=== PATIENT | female | born 1970 | race Caucasian/White ===

== ENCOUNTER 2020-12-27 07:32 | Emergency (ER) | payer OTHER, MEDICAID, SELFPAY ==
--- NOTE | ~2020-12-27 | CT_ITS ---
EXAMINATION: CT ABDOMEN AND PELVIS WITHOUT CONTRAST CLINICAL INFORMATION: Mid to lower back pain radiating to right leg. COMPARISON: CT abdomen and pelvis with contrast 11/05/2018. TECHNIQUE: Multidetector volumetric imaging was performed from the superior aspect of the liver through the pubic symphysis. Sagittal and coronal reformatted images were obtained on the technologist's workstation. No oral or intravenous contrast. This CT examination was performed using dose optimization techniques as appropriate, variously including the following: *Automated exposure control *Adjustment of mA and/or kV according to patient size (this includes techniques or standardized protocols for targeted exams where dose is matched to indication/reason for exam; i.e. extremities or head) *Use of iterative reconstruction technique DLP: 661 mGy-cm FINDINGS: LUNG BASES: The visualized lung bases are unremarkable. LIVER, GALLBLADDER, AND BILIARY TREE: The liver is smooth in contour and normal in attenuation. There is elongated right lobe measuring 21 cm in length similar to prior exam. There is no focal hepatic parenchymal lesion or intrahepatic ductal dilatation. The gallbladder has small fundal phrygian cap. There is no stone or wall thickening, gallbladder dilatation, or pericholecystic inflammatory changes. Common duct is unremarkable. PANCREAS: Unremarkable. SPLEEN: Normal in size. Small splenule again seen left upper quadrant, 1 cm. ADRENAL GLANDS: Unremarkable. KIDNEYS AND URETERS: The kidneys are normal in size, shape, and attenuation. No hydronephrosis, hydroureter, or calculi seen. No perinephric stranding. BLADDER: Unremarkable. GASTROINTESTINAL TRACT: There is no bowel obstruction or focal inflammatory changes in the bowel or mesentery. The appendix is normal. There is no ascites or fluid collection. ABDOMINAL WALL: No significant hernia is appreciated. LYMPH NODES: No lymphadenopathy. Small stable right diaphragmatic node, 0.7 cm, series 2 image 7. VASCULAR: Unremarkable. PELVIC VISCERA: Probable bilateral tubal ligation clips. No adnexal mass or pelvic ascites. OSSEOUS STRUCTURES: No acute bony abnormality. There are degenerative disc changes with posterior bulging and annulus mineralization again seen L4-L5. CT/CT abdomen pelvis wo con IMPRESSION: 1. No acute inflammatory changes in abdomen or pelvis. 2. No hydronephrosis, urinary tract calculi, or perinephric stranding. 3. Degenerative disc changes and disc bulging L4-L5 similar to prior exam 2018.
[2020-12-27 09:06] VITALS: BP 111/78; PULSE 76; RESP 14; TEMP 36.2; O2SAT 97; BMI 34.3
[2020-12-27] MEDS: dexAMETHasone 2 MG TABLET 10 MG PO (10:15)
[2020-12-27] MEDS: Cyclobenzaprine HCl 10 MG TABLET PO (10:16)
[2020-12-27] MEDS: NaPROXEN 500 MG TABLET PO (10:17)
[2020-12-27 10:24] LABS: Glucose Urine UA NEG (NEG); Leukocyte Esterase Urine TRACE (NEG); Nitrite Urine NEG (NEG); PH 5.5 (5.0-8.0); Specific Gravity - Urine >= 1.030 (1.005-1.025); UACC Culture Trigger YES; Urine Blood NEG (NEG); Urine Ketones NEG (NEG); Urine Protein NEG (NEG-TRACE)
[2020-12-27 10:26] LABS: Appearance Urine HAZY; Color Urine YELLOW
--- NOTE | 2020-12-27 10:26 | ED_ITS ---
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 Denies any other injuries complaints or concerns at this time. MD elicited complaint: back pain and back injury Pertinent past history: recent trauma Onset (ago): minute(s) (Prior to arrival) Timing: constant Severity: moderate Similar Symptoms Previously: No Quality: sharp and aching Location: lumbar spine Radiation: right upper leg Exacerbating factors: movement and walking Relieving factors: immobilization Context: while lifting, turning/twisting and bending Associated symptoms: denies other symptoms Treatments prior to arrival: other ([id number] Tylenol with mild to no symptomatic relief) Work related injury: Yes Related Data Previous Rx's Medication Instructions Recorded cyclobenzaprine 10 mg PO Q8H #10 tab 12/27/20 naproxen 500 mg PO BID PRN #10 tab 12/27/20 Allergies Allergy/AdvReac Type Severity Reaction Status Date / Time No Known Allergies Allergy Unverified 06/01/20 15:56 Review of Systems Review of Systems: Constitutional : No trauma, No Weight loss, No Fever, No Chills, ENT/Mouth : No Hearing loss, No Ear Pain, No Nasal Congestion, No Sinus Pain, No Hoarseness, No sore throat, No Rhinorrhea, No Swallowing Difficulty Cardiovascular : No Chest Pain, No SOB Respiratory : No Cough, No Dyspnea Gastrointestinal : No Nausea, No Vomiting, No Diarrhea, No abdominal Pain, No Hematochezia, No Melena Genitourinary : No Dysuria, No Urinary Frequency, No Hematuria, No Urinary or Bowel Incontinence/retention Musculoskeletal : + Back pain, No neck pain, No joint stiffness, No joint swelling Skin : No Skin Lesions, No rash or signs of infection Neuro : + radiation, No weakness, No Numbness, No Paresthesias, No headache, no loss of bowel or bladder incontinence, no saddle anesthesia, Focal weakness, No radiation Denies history of IV drug usage. Yes all other systems are reviewed and are negative FOR[facility]LY [facility] Past Medical History Attestation statement: The following information was validated with the patient. Medical History Cervical cancer Social History Social History Smoking Status: Current every day smoker Smoked in Last 30 Days: Yes Use of substances other than those prescribed or required for medical reasons: No Advance Directives: Yes Advance Directives Information Provided: Yes Advance Directives on File: No Physical Exam Vital Signs: Vital Signs: Last Vital Signs Temp 97.1 F 12/27/20 09:06 Pulse 76 12/27/20 09:06 Resp 14 12/27/20 09:06 BP 111/78 12/27/20 09:06 Pulse Ox 97 12/27/20 09:06 Body Mass Index 34.3 vital signs have been reviewed as normal and appeared to be correct. Blood pressure normal. Heart rate normal. Respiration rate normal. Temperature normal. Oxygen saturation normal. Appearance: Alert. Oriented X3. No acute distress. Head: Normal external exam. Normocephalic. Atraumatic. No Green signs noted. No raccoon eyes noted Eyes: PERRLA. EOMI. Conjunctiva and sclera normal. Eyelids normal. ENT: EAC normal. TM's Normal. Pharynx normal. Uvula midline. Moist mucous membranes. No trismus noted. No drooling noted. No muffled voice noted. Neck: Normal inspection. Neck supple. FROM. No adenopathy. Thyroid Normal. No meningeal signs. No neck mass noted. CVS: Normal heart rate and rhythm. Heart sound normal. No murmurs noted. Pulses normal throughout. Respiratory: No respiratory distress. Painless inspiration. Breath sounds normal. No wheezes/rales/rhonchi noted. Chest nontender. No accessory muscle usage noted or decreased air movement noted. Abdomen: Soft and nontender. Bowel sounds normal in all 4 quadrants. No distention noted. No organomegaly noted. No visible injury noted. Back: No CVA tenderness. Full range of motion noted. No obvious deformities, or edema. Mild para-spinal muscular tenderness from lumbar region to coccyx. Full ROM in back and lower extremities. 5/5 strength hip extension/flexion, abduction, adduction. Mild Lumbar pain with hip flexion against resistance. Straight leg raise test negative on right; Straight leg raise test negative on left; Reflexes normal ankle and knee bilaterally; EHL motor strength normal bilaterally. No rashes/lesion/induration/fluctuance or signs infection noted. Skin: Skin warm and dry. Normal skin color. Normal skin turgor. No rashes/lesions/lacerations noted. Extremities: No lower extremity edema. Extremities exhibit normal range of motion. Extremities nontender. Neuro: Oriented X 3. No motor deficit. No sensory deficit. Reflexes normal. Normal steady gait. Course Course Course Narrative: Pt c likely muscular pain, but could be herniated disc. Neuro exam shows no deficits. Not c/w AAA/epidural abscess/dissection.No high risk Hx (Incont, fever, immunosupp, recent surgery/LP, coag, signif trauma, wt loss, puls mass, hx/o Ca, TB, or IVDU) to warrant MRI today. Not c/w Pyelo/UTI/kidney stone/spinal fx. Not cauda equina syndrome. Due to patient reporting she has never had this pain will obtain a CT scan of abdomen pelvis without contrast. Patient also gave me a form and on the form it says drug screen for employee she reports that her employer gave her this and specifically told her that this 1 form had to be filled out by the doctor/provider that sees her therefore will obtain a UA and a drugs of abuse screen. If CT of abdomen and pelvis is negative will DC c meds and f/u with [facility]. Patient understands agrees this plan. MDM - Back Pain/Injury Medical Records Attestation: I reviewed the patient's medical records. Lab Data Attestation: I reviewed the patient's lab results. Labs: Lab Results 12/27/20 12/27/20 12/27/20 Range/Units 10:09 10:09 10:09 Urine Color YELLOW Urine Appearance HAZY Urine pH 5.5 (5.0-8.0) Ur Specific [place] >= 1.030 H (1.005-1.025) Urine Protein NEG (NEG-TRACE) MG/DL Urine Glucose (UA) NEG (NEG) MG/DL Urine Ketones NEG (NEG) MG/DL Urine Blood NEG (NEG) Urine Nitrite NEG (NEG) Ur Leukocyte Esterase TRACE H (NEG) Urine RBC 0 (0) /HPF Urine WBC 1-4 (0-4) /HPF Ur Squamous Epith Cells 2+ /LPF Urine Bacteria TRACE /LPF Urine Test NEGATIVE (NEGATIVE) Urine Opiates Screen Not Detected (Not Detect) Ur Barbiturates Screen Not Detected (Not Detect) Ur Phencyclidine Scrn Not Detected (Not Detect) Ur Amphetamines Screen Not Detected (Not Detect) U Benzodiazepines Scrn Not Detected (Not Detect) Urine Cocaine Screen Not Detected (Not Detect) U Marijuana (THC) Screen Not Detected (Not Detect) Imaging Data CT scan of abdomen and pelvis without IV contrast: Attestation: I personally reviewed and interpreted this imaging study as follows: Radiologist's impression: FINDINGS: LUNG BASES: The visualized lung bases are unremarkable. LIVER, GALLBLADDER, AND BILIARY TREE: The liver is smooth in contour and normal in attenuation. There is elongated right lobe measuring 21 cm in length similar to prior exam. There is no focal hepatic parenchymal lesion or intrahepatic ductal dilatation. The gallbladder has small fundal phrygian cap. There is no stone or wall thickening, gallbladder dilatation, or pericholecystic inflammatory changes. Common duct is unremarkable. PANCREAS: Unremarkable. SPLEEN: Normal in size. Small splenule again seen left upper quadrant, 1 cm. ADRENAL GLANDS: Unremarkable. KIDNEYS AND URETERS: The kidneys are normal in size, shape, and attenuation. No hydronephrosis, hydroureter, or calculi seen. No perinephric stranding. BLADDER: Unremarkable. GASTROINTESTINAL TRACT: There is no bowel obstruction or focal inflammatory changes in the bowel or mesentery. The appendix is normal. There is no ascites or fluid collection. ABDOMINAL WALL: No significant hernia is appreciated. LYMPH NODES: No lymphadenopathy. Small stable right diaphragmatic node, 0.7 cm, series 2 image 7. VASCULAR: Unremarkable. PELVIC VISCERA: Probable bilateral tubal ligation clips. No adnexal mass or pelvic ascites. OSSEOUS STRUCTURES: No acute bony abnormality. There are degenerative disc changes with posterior bulging and annulus mineralization again seen L4-L5. CT/CT abdomen pelvis wo con IMPRESSION: 1. No acute inflammatory changes in abdomen or pelvis. 2. No hydronephrosis, urinary tract calculi, or perinephric stranding. 3. Degenerative disc changes and disc bulging L4-L5 similar to prior exam 2019. Discharge Plan Discharge Clinical Impression: Strain of lumbar region, Work related injury Instructions: Low Back Strain (ED), Return to Work Instructions (ED), Lower Back Exercises (ED) Prescriptions: New cyclobenzaprine 10 mg tablet 10 mg PO Q8H Qty: 10 RF: 0 naproxen 500 mg tablet 500 mg PO BID PRN (Reason: pain) Qty: 10 RF: 0 Referrals: [facility] [Provider Group] - 12/27/20 (You need to follow-up with [facility] today or tomorrow for work related injury and they will let you know when you can return back to work) Stand Alone Forms: Work/School Release Print Language: Syriac
[2020-12-27 10:27] LABS: UPreg QC Valid YES; Urine Pregnancy NEGATIVE (NEGATIVE)
[2020-12-27 10:34] LABS: Bacteria Urine TRACE /LPF; RBC Urine 0 /HPF (0); Squamous Epithelial Cell Urine 2+ /LPF
[2020-12-27 10:45] LABS: Amphetamine Screen Urine Not Detected (Not Detect); Barbiturates, Urine Not Detected (Not Detect); Benzodiazepines Screen Urine Not Detected (Not Detect); Cannabinoid Screen Urine Not Detected (Not Detect); Cocaine Screen Urine Not Detected (Not Detect); Opiate Screen Urine Not Detected (Not Detect); Phencyclidine Screen Urine Not Detected (Not Detect)
== END 2020-12-27 11:40 | disposition home or self-care (01) ==
PROVIDERS: Physician Assistant Medical; Emergency Provider Emergency Medicine Emergency Medical Services
DX: S39.012A Strain of muscle, fascia and tendon of lower back, initial encounter (principal); X50.0XXA Overexertion from strenuous movement or load, initial encounter; M54.41 Lumbago with sciatica, right side; F17.200 Nicotine dependence, unspecified, uncomplicated; Y93.F2 Activity, caregiving, lifting; Y92.122 Bedroom in nursing home as the place of occurrence of the external cause; Y99.0 Civilian activity done for income or pay
CPT/HCPCS: 74176; 80307; 81001; 81003; 81025; 87086; 99284; J8540

== ENCOUNTER 2021-01-10 12:26 | Outpatient (REF) | payer MEDICAID, SELFPAY ==
[2021-01-10 13:04] LABS: MANUAL DIFF FLAG NO
[2021-01-10 13:10] LABS: Basophils Percent Auto 0.3 % (0-2); Eosinophils Percent Auto 0.5 % (0-4); Hematocrit 39.5 % (37-47); Hemoglobin 13.4 g/dl (12.0-16.0); Imm Gran Abs Auto 0.02 X10*3/uL (0.00-0.03); Imm Gran Pct Auto 0.3 % (0.0-0.4); Lymphocytes Absolute Auto 1.3 X10*3/uL (1.2-4.9); Lymphocytes Percent Auto 16.6 % (20-40); Mean Corpuscular HGB Conc 33.9 g/dl (31.0-35.0); Mean Corpuscular Hemoglobin 33.8 pg (27.0-33.0); Mean Corpuscular Volume 99.7 fL (80-98); Mean Platelet Volume 8.7 fL (9.4-12.3); Monocytes Absolute Auto 0.4 X10*3/uL (0.1-1.2); Neutrophils Absolute Auto 5.8 X10*3/uL (2.0-8.3); Neutrophils Percent Auto 77.3 % (45-73); Platelet Count 201 X10*3/uL (160-400); Red Blood Count 3.96 X10*6/uL (4.20-5.50); Red Cell Distribution Width 12.5 % (11.0-16.0); White Blood Count 7.5 X10*3/uL (4.8-10.8)
[2021-01-10 13:49] LABS: Glucose Urine UA NEG (NEG); Leukocyte Esterase Urine NEG (NEG); Nitrite Urine NEG (NEG); Specific Gravity - Urine >= 1.030 (1.005-1.025); Urine Blood NEG (NEG); Urine Ketones NEG (NEG); Urine Protein NEG (NEG-TRACE)
[2021-01-10 13:51] LABS: Appearance Urine HAZY; Color Urine DARK YELLOW
[2021-01-10 13:55] LABS: Alanine Aminotransferase 33 U/L (0-31); Albumin Level 4.2 g/dL (3.5-5.0); Alkaline Phosphatase 93 U/L (39-117); Amylase 74 U/L (28-100); Anion Gap 14 (12-20); Aspartate Amino Transferase 33 U/L (5-31); Bilirubin Direct 0.2 mg/dL (0.0-0.5); Bilirubin Total 0.6 mg/dL (0.0-1.0); Blood Urea Nitrogen 15 mg/dL (9-16); Calcium 9.1 mg/dL (8.4-10.2); Carbon Dioxide 24 mmol/L (22-29); Chloride 107 mmol/L (96-108); Estimated Glomerular Filt Rate > 60; Glucose Random 175 mg/dL (60-115); Lipase 40 U/L (8-78); Potassium 4.1 mmol/L (3.3-5.1); Sodium 141 mmol/L (135-145); Total Protein 7.3 g/dL (6.5-8.0)
[2021-01-10 14:14] LABS: TSH reflex Free T4 2.41 uIU/mL (0.32-4.0)
== END 2021-01-10 12:27 | disposition home or self-care (01) ==
LOC: HO.LAB 12:26
PROVIDERS: PCP Student in an Organized Health Care Education/Training Program; Visit Provider Pediatrics
DX: R10.13 Epigastric pain (principal); M54.16 Radiculopathy, lumbar region
CPT/HCPCS: 36415; 80048; 80076; 81003; 82150; 83690; 84443; 85025

== ENCOUNTER 2021-01-29 14:33 | Outpatient (REF) | payer MEDICAID, SELFPAY ==
[2021-01-29 15:31] LABS: Estimated Average Glucose 114 mg/dL; Hemoglobin A1c % 5.6 %
[2021-01-29 15:43] LABS: Anion Gap 13 (12-20); Blood Urea Nitrogen 13 mg/dL (9-16); Calcium 8.8 mg/dL (8.4-10.2); Carbon Dioxide 25 mmol/L (22-29); Chloride 105 mmol/L (96-108); Estimated Glomerular Filt Rate > 60; Glucose Random 128 mg/dL (60-115); Potassium 4.1 mmol/L (3.3-5.1); Sodium 139 mmol/L (135-145)
[2021-01-29 16:05] LABS: T4 Thyroxine 4.7 ug/dL (4.5-12.0); Thyroid Stimulating Hormone 3.77 uIU/mL (0.32-4.0)
[2021-01-30 21:42] LABS: Insulin Level Total 28.9 uIU/mL
== END 2021-01-29 14:34 | disposition home or self-care (01) ==
LOC: HO.LAB 14:33
PROVIDERS: Absent Provider Student in an Organized Health Care Education/Training Program; PCP Student in an Organized Health Care Education/Training Program; Visit Provider Pediatrics
DX: E03.9 Hypothyroidism, unspecified (principal); R73.9 Hyperglycemia, unspecified
CPT/HCPCS: 36415; 80048; 83036; 83525; 84436; 84443; 84481

== ENCOUNTER → 2021-12-26 07:24 | Outpatient (BNVA) | payer MEDICAID, SELFPAY | PROVIDERS: PCP Student in an Organized Health Care Education/Training Program; Visit Provider Physician Assistant | DX: R14.0 Abdominal distension (gaseous) (principal); R31.9 Hematuria, unspecified; K59.00 Constipation, unspecified; R19.7 Diarrhea, unspecified; K21.9 Gastro-esophageal reflux disease without esophagitis; Z85.41 Personal history of malignant neoplasm of cervix uteri; Z92.21 Personal history of antineoplastic chemotherapy; Z92.3 Personal history of irradiation | CPT/HCPCS: 99202 ==

== ENCOUNTER 2022-03-25 15:51 | Outpatient (REF) | payer MEDICAID, SELFPAY ==
--- NOTE | ~2022-03-25 | MM_ITS ---
EXAMINATION: MM SCREENING DIGITAL BREAST TOMOSYNTHESIS, BILATERAL CLINICAL INFORMATION: Screening. Asymptomatic. Benign right core biopsy, 2012. Prior history bilateral reduction mammoplasty. The lifetime risk of breast cancer based on the Tyrer-Cuzick Model is 8%. COMPARISON: Outside mammography: 05/02/2016, 12/27/2013 ([facility]) TECHNIQUE: Digital breast tomosynthesis is performed in both the craniocaudal and mediolateral oblique views along with computer-aided detection (CAD). Synthesized 2D images are generated from the tomosynthesis. FINDINGS: The breasts are almost entirely fatty (ACR BI-RADS breast composition Category a). There is minor scarring and scattered benign round/rim calcifications similar to prior outside exam consistent with the reduction mammoplasty. There is no interval mass or architectural abnormality or abnormal calcifications. There are benign grouped dermal calcifications mid 6:00 right breast. Biopsy clip marker again noted anterior 6:00 right breast. The axilla are unremarkable. There are no significant changes. MM/MM tomosynthesis screening BI IMPRESSION: No mammographic evidence of malignancy. ASSESSMENT: BI-RADS 2: Benign RECOMMENDATION: Routine annual mammography screening. This patient's information was entered into a reminder system with a target due date for their next mammogram.
== END 2022-03-25 15:52 | disposition home or self-care (01) ==
LOC: HO.MAMMO 15:51
PROVIDERS: PCP Student in an Organized Health Care Education/Training Program; Visit Provider Advanced Practice Midwife
DX: Z12.31 Encounter for screening mammogram for malignant neoplasm of breast (principal)
CPT/HCPCS: 77063; 77067

== ENCOUNTER 2022-04-02 10:42 | Day surgery (SDC) | payer MEDICAID, SELFPAY ==
[2022-03-27 11:52] VITALS: BMI 34.2
--- NOTE | 2022-04-01 09:53 | HO.ANESPROP2 ---
Documented by User: Fabiana Mendes NP 04/01/22 09:54 HPI - Anesthesia Eval Consult details Narrative: 51yo F for Upper Endoscopy and Colonoscopy FOR[facility]LY [facility] Active Problems Active Problems: All Active Problems (Updated 01/01/22 @ 08:11 by Samina Meza PA-C) Acid reflux (Acute) Blood in urine (Acute) Generalized bloating (Acute) Constipation (Acute) Diarrhea (Acute) Anxiety reaction (Acute) Depression (Acute) Cervical cancer (Acute) Past Medical History Medical History Cervical cancer Depression Hypothyroid Smoker Family History Family History Father No problems noted. Mother No problems noted. Brother Pancreatic cancer Surgical History Surgical History Hx of bilateral breast reduction surgery Hx of removal of cyst Hx of skin graft Social History Social History Household Members: Spouse and Children Alcohol intake: current Alcohol intake frequency: holidays/special occasions only Patient Tobacco Use Status: Current everyday Tobacco user Cigarette Packs Per Day: 5 Smoked in Last 30 Days: Yes Patient Interested in Nicotine Replacement: No Substance Use Type: Methamphetamine Are you DNR?: No Advance Directives: No Advance Directives Information Provided: Yes Nutrition Risks: No Nutritional Risk FDLMP: 2013 Meds Allergies Allergy/AdvReac Type Severity Reaction Status Date / Time No Known Allergies Allergy Verified 12/26/21 07:37 Exam Exam Date and Time: April 01, 2022 0953 Height,Weight and Vital Signs: Height 5 ft 3 in Weight 87.543 kg Assessment and Plan Assessment Anesthesia Assessment: Chart Reviewed Documented by User: Wander Hardin MD 04/02/22 12:53 [facility] Past Medical History Medical History Cervical cancer Depression Hypothyroid Smoker Patient : No Family History Family History Father No problems noted. Mother No problems noted. Brother Pancreatic cancer Family history of problems with anesthesia: No Surgical History Surgical History Hx of bilateral breast reduction surgery Hx of removal of cyst Hx of skin graft History of Problems with Anesthesia: No Social History Social History Household Members: Spouse and Children Alcohol intake: current Alcohol intake frequency: holidays/special occasions only Patient Tobacco Use Status: Current everyday Tobacco user Cigarette Packs Per Day: 5 Smoked in Last 30 Days: Yes Patient Interested in Nicotine Replacement: No Substance Use Type: Methamphetamine Are you DNR?: No Advance Directives: No Advance Directives Information Provided: Yes Nutrition Risks: No Nutritional Risk FDLMP: 2013 Meds Allergies Allergy/AdvReac Type Severity Reaction Status Date / Time No Known Allergies Allergy Verified 12/26/21 07:37 Exam Airway Mallampati Class: IV TM Dist: >3cm Neck ROM: Full Loose/Missing/Broken Teeth: No Heart: rrr Lungs: clear Assessment and Plan Final Anesthetic Review Family History of Problems with Anesthesia: No History of Problems with Anesthesia: No NPO: Yes ASA Class: II Final Preanesthetic Review: No Changes in Pt Med Stat, Meds/Allgs Chart Reviewed, Consent Obtained/Reviewed and Anes Risks/Benef Reviewed Patient Risk: Intermediate Procedure Risk: Low Anesthetic Plan Anesthetic Plan: MAC: Disposition: Standard PACU
--- NOTE | 2022-04-02 11:44 | PC.NURSE ---
pt states has not had a menstrual cycle since 2012 since cervical cancer diagnosis, chemo and radiation. dr. Hardin stated no need for hcg test
[2022-04-02 11:45] VITALS: BP 115/70; PULSE 78; RESP 18; TEMP 36.2; O2SAT 96
[2022-04-02] MEDS: Lactated Ringers 1,000 ML 100 ML IVCONT (11:48)
--- NOTE | 2022-04-02 12:40 | MHC.SHP ---
Pre-Procedural Eval Section A Date of Service: 04/02/22 Section B Chief Complaint: constipation,diarrhea,reflux disease Details of Present Illness: brother with pancreatic cancer aged 48 Relevant Family History (Specify if Yes): Yes Relevant Social History: Tobacco Use Present Medications: see Short Stay Collaborative assessment Medical History: Significant History (Cervical cancer Depression Hypothyroid Smoker) History of Previous Operations: Relevant previous surgery/procedure and date(s) (Hx of bilateral breast reduction surgery Hx of removal of cyst Hx of skin graft) Allergies: Allergies Allergy/AdvReac Type Severity Reaction Status Date / Time No Known Allergies Allergy Verified 12/26/21 07:37 Review of Systems Sugical H&P ROS: Negative: Constitution, Cardiovascular, Respiratory, Neurological, Psychiatric, Hem-Onc, Allergic/Immunologic, Gastrointestinal, Genitourinary, Musculoskeletal, Integumentary, Endocrine and Eyes/Ears/Nose/Throat Exam Surgical H&P Exam: Normal: HEENT, Normal: Heart, Normal: Lungs, Normal: Extremities, Normal: Abdomen, Normal: Skin and Normal: Neurological Plan Diagnosis/Plan: Unchanged I have reviewed the history and physical and performed a pertinent physical examination on my patient. No changes have occurred unless specified.
--- NOTE | 2022-04-02 14:54 | P.OP_ITS ---
Operative Note Operative Note Date of Service: 04/02/22 Narrative: Operative Information Procedure Description: EGD, Colonoscopy Indication: abnormal bowel habit, gas symptoms, GERD Anesthesia: MAC FLEXIBLE TRANSORAL UPPER GASTROINTESTINAL ENDOSCOPY AND COLONOSCOPY PROCEDURE NOTE UPPER ENDOSCOPY Consent: Indications for the procedure and potential complications of bleeding, perforation, reaction to medications and missed diagnosis were discussed with the patient and informed consent was obtained. Instrument: Olympus GIF H 190 J mid size upper endoscope Monitoring: Vital signs and clinical assessment, continuous EKG monitoring, Pulse oximetry, Carbon Dioxide monitoring and blood pressure monitoring were done throughout the procedure. Procedure: The patient was placed in the left lateral decubitis position and pre-procedure medications were administered and a bite block was placed. The endoscope was inserted into the mouth and advanced under direct vision to the third part of duodenum. A careful inspection was made as the upper endoscope was withdrawn including a retroflexed examination of the proximal stomach; Findings and interventions are described below. Findings: Larynx:normal Esophagus: GE junction at 38 cm, diaphragm hiatus at 38 cm, possible short segment barretts, bx taken, v lax LES. small esophageal inlet patch noted. Stomach: Patchy erythema, Biopsies were obtained. Grade 3 flap valve on retroflexed examination of the cardia. Duodenum: Normal bulb and descending duodenum, bx taken Intervention: Biopsies as noted above COLONOSCOPY Instrument: Olympus variable stiffness pediatric scope 190L Colonoscopy Monitoring: Vital signs and clinical assessment, continuous EKG monitoring, Pulse oximetry, Carbon Dioxide monitoring and blood pressure monitoring were done throughout the procedure. Colon withdrawal time was 12 minutes. Procedure: The patient was placed in the left lateral decubitis position and pre-procedure medications were administered. After a digital rectal examination of the ano-rectum, the video colonoscope was inserted into the rectum and advanced through the colon to the cecum/TI. The colonoscope was slowly withdrawn in a retrograde panoramic fashion and the colon mucosa was carefully examined including a retroflexed view of the rectum. Findings and interventions are described below. Procedure Difficulty: easy Findings: Terminal Ileum-normal, bx taken Cecum: erythema and nodularity, bx taken Ascending Colon: normal, bx taken. x2 sessile polyps noted measuring 11-13 mm and removed with cold snare Transverse Colon - x 1 sessile polyp 8-10 mm removed with cold snare Descending Colon:normal Sigmoid Colon: diverticulosis noted, rather featureless mucosa with granularity, and erythema, edema, bx taken Rectum: Retroflexion with small internal hemorrhoids, grade I, mucosa seemed less erythematous Anorectum - normal Colon preparation: Bussey Bowel Preparation Scale Right colon; 2 Transverse colon: 2 Left colon; 2 (0 = Unprepared colon segment with mucosa not seen due to solid stool that cannot be cleared. 1 = Portion of mucosa of the colon segment seen, but other areas of the colon se gment not well seen due to staining, residual stool and/or opaque liquid. 2 = Minor amount of residual staining, small fragments of stool and/or opaque liquid, but mucosa of colon segment seen well. 3 = Entire mucosa of colon segment seen well with no residual staining, small fragments of stool or opaque liquid) Impression and Post Procedure Diagnosis: Endoscopy Findings: possible barretts gastritis esophageal inlet patch Colonoscopy Findings: polyps internal hemorrhoids diverticular disease patchy colitis, ?Crohns Plan: Await Pathology results Repeat Colonoscopy in 3-5 years due to polyps or earlier if clinically indicated High fiber diet leaflet avoid straining at stool, epsom salts and sitz bath, anusol supps or cream may consider CTe or MRe, will await bx Above findings were reviewed with the patient and relevant handouts were provided if indicated.
[2022-04-02 15:24] VITALS: BP 125/73; PULSE 121; RESP 20; TEMP 36.2; O2SAT 98
[2022-04-02 15:39] VITALS: BP 115/80; PULSE 99; RESP 18; O2SAT 96
== END 2022-04-02 16:07 | disposition home or self-care (01) ==
PROVIDERS: PCP Student in an Organized Health Care Education/Training Program; Visit Provider Internal Medicine Gastroenterology
PROC: (CPT 45385; principal; 2022-04-02 12:30)
DX: R19.4 Change in bowel habit (principal); D12.2 Benign neoplasm of ascending colon; D12.4 Benign neoplasm of descending colon; K63.5 Polyp of colon; K57.30 Diverticulosis of large intestine without perforation or abscess without bleeding; K64.0 First degree hemorrhoids; K52.9 Noninfective gastroenteritis and colitis, unspecified; K21.9 Gastro-esophageal reflux disease without esophagitis; Z80.0 Family history of malignant neoplasm of digestive organs; K29.70 Gastritis, unspecified, without bleeding; Q39.8 Other congenital malformations of esophagus; K44.9 Diaphragmatic hernia without obstruction or gangrene; Z79.899 Other long term (current) drug therapy; R31.9 Hematuria, unspecified; Z85.41 Personal history of malignant neoplasm of cervix uteri; Z92.21 Personal history of antineoplastic chemotherapy; Z92.3 Personal history of irradiation; F17.210 Nicotine dependence, cigarettes, uncomplicated
CPT/HCPCS: 45385; 45380; 43239; 88305; 88342; J2250; J3010

== ENCOUNTER 2023-10-07 13:51 | Emergency (ER) | payer MEDICAID, SELFPAY ==
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
[2023-10-07 14:04] VITALS: BP 125/78; PULSE 94; RESP 18; TEMP 36.6; O2SAT 98; BMI 29.0
--- NOTE | 2023-10-07 14:07 | ECG_ITS ---
Test Reason : RUE HEAVINESS Blood Pressure : / mmHG Vent. Rate : 083 BPM Atrial Rate : 083 BPM P-R Int : 128 ms QRS Dur : 076 ms QT Int : 362 ms P-R-T Axes : 062 030 025 degrees QTc Int : 425 ms Normal sinus rhythm Possible Left atrial enlargement Borderline ECG When compared with ECG of 09-NOV-2015 15:32, No significant change was found Referred By: Rosina Hurt Electronically Signed By:Rober Benjamin
== END 2023-10-07 16:50 | disposition home or self-care (01) ==
PROVIDERS: Emergency Provider Internal Medicine; PCP Student in an Organized Health Care Education/Training Program
DX: S16.1XXA Strain of muscle, fascia and tendon at neck level, initial encounter (principal); S46.911A Strain of unspecified muscle, fascia and tendon at shoulder and upper arm level, right arm, initial encounter; V47.6XXA Car passenger injured in collision with fixed or stationary object in traffic accident, initial encounter; R51.9 Headache, unspecified; Y93.89 Activity, other specified; Y92.410 Unspecified street and highway as the place of occurrence of the external cause; Y99.9 Unspecified external cause status
CPT/HCPCS: 70450; 72125; 73080; 93005; 99283; 99284

== ENCOUNTER → 2023-10-07 14:07 | Outpatient (BNV) | payer MEDICAID, SELFPAY | PROVIDERS: Emergency Provider Internal Medicine; PCP Student in an Organized Health Care Education/Training Program; Visit Provider Internal Medicine Cardiovascular Disease | DX: R94.31 Abnormal electrocardiogram [ECG] [EKG] (principal) | CPT/HCPCS: 93010 ==

== ENCOUNTER 2024-09-15 08:14 | Emergency (ER) | payer MEDICAID, SELFPAY ==
--- NOTE | ~2024-09-15 | CT_ITS ---
CLINICAL HISTORY: LLQ pain radiates to groin CT abdomen and pelvis without contrast Comparison: CT/REG - CT ABDOMEN PELVIS WO CON - 12/27/20 09:34 EDT Findings: The lung bases are clear. The liver, spleen, adrenal glands and pancreas are unremarkable. The gallbladder is distended, likely within normal limits. Kidneys demonstrate neither obstruction or calculus. The appendix extends to near midline, axial images 55 through 62 and is borderline prominent at 8 mm. Reference coronal image 56. No bowel obstruction, free air, abscess or adenopathy. Uterus and adnexa are unremarkable. Mild sclerotic changes along the sacroiliac joints bilaterally, [id number]-left. Degenerative changes seen within the spine. Impression: Mildly prominent appendix as detailed above. This is increased in diameter versus the most recent comparison study. Acute appendicitis not excluded although there is no significant stranding about the appendix. Otherwise, chronic appearing changes as detailed. This document has been electronically signed by: Giuliano Manriquez MD on 09/15/2024 10:26:16
--- NOTE | 2024-09-15 08:20 | ED.GENADULT ---
HPI - General Adult General Chief complaint: Abdominal Pain Stated complaint: FEVER SINCE FRIDAY Time Seen by Provider: 09/15/24 08:18 Source: patient Mode of arrival: ambulatory Limitations: no limitations History of Present Illness ED Provider: Sejal Sánchez PA-C HPI narrative: Patient is a 54 year old assigned female at with a history of cervical cancer for which she completed internal and external radiation / treatment in 2013, anxiety, and GERD presenting to the emergency department today with left lower abdominal pain, fever, and nausea. Patient states that over the last 2 days she has had left lower abdominal pain that radiates into her groin and into her leg. Patient states that she has had fevers and nausea at home as well. Patient states that she has not been sexually active because of her chronic cervical pain. Patient denies any dizziness, lightheadedness, vomiting, chills, blurry vision, double vision, loss of vision, chest pain, difficulty breathing, shortness of breath, back pain, night sweats, pain with urination, increased urinary frequency, increased urinary urgency, blood in her urine or stool, syncope or a near syncopal episode, recent trauma or falls, bowel incontinence, bladder incontinence, or any other complaints at this time. Onset (ago): day(s) (2) Location: abdomen Relieving factors: none Exacerbating factors: none Associated symptoms: fever/chills and nausea/vomiting Treatments prior to arrival: other (tylenol no relief) Related Data Previous Rx's ?Medication ?Instructions ?Recorded cyclobenzaprine 10 mg tablet 10 mg PO Q8H Muscle spasm #10 tabs 12/27/20 naproxen 500 mg tablet 500 mg PO BID PRN pain #10 tabs 12/27/20 bisacodyl 5 mg tablet,delayed 10 mg (2 x 5 mg) PO ONCE 12/26/21 release (Dulcolax (bisacodyl)) colonoscopy prep 1 day #2 tabs methylcellulose (laxative) 500 mg 500 mg PO BID #60 tabs 12/26/21 tablet (Citrucel) omeprazole 20 mg capsule,delayed 20 mg PO DAILY #30 caps 12/26/21 release simethicone 125 mg chewable tablet 125 mg PO TID-QID PRN abdominal 12/26/21 (Gas Relief (simethicone)) distention #90 tabs polyethylene glycol 3350 17 238 g PO ONCE 1 day #238 grams 04/01/22 gram/dose oral powder (Miralax) cyclobenzaprine 5 mg tablet 5 mg PO TID PRN muscle spasm #10 10/07/23 tabs lidocaine 5 % topical patch 1 patch topical DAILY #15 ea 10/07/23 cyclobenzaprine 5 mg tablet 5 mg PO TID PRN low back pain 7 09/15/24 days #21 tabs ondansetron 4 mg disintegrating 4 mg PO Q8H 3 days #9 tabs 09/15/24 tablet Allergies Allergy/AdvReac Type Severity Reaction Status Date / Time No Known Allergies Allergy Verified 09/15/24 08:23 Review of Systems Constitutional: Constitutional: Reports no additional constitutional complaints, Denies chills, Reports fever(s) and Denies night sweats Eyes: Eyes: Reports no additional eye complaints, Denies blurry vision, Denies change in vision, Denies diplopia, Denies eye discharge, Denies loss of vision and Denies eye pain ENT: Denies dizziness Cardiovascular: Cardiovascular: Reports no additional cardiovascular complaints, Denies chest pain, Denies lightheadedness, Denies Loss of Consciousness and Denies dyspnea Respiratory: Respiratory: Reports no additional respiratory complaints and Denies dyspnea Gastrointestinal: Gastrointestinal: Reports no additional gastrointestinal complaints, Reports abdominal pain, Denies melena, Denies hematochezia, Denies change in bowel habits, Denies change in stool character, Reports nausea and Denies vomiting Genitourinary: Genitourinary: Denies hematuria, Denies urinary frequency, Denies dysuria, Denies urinary incontinence, Denies urinary hesitancy and Denies urinary urgency Musculoskeletal: Musculoskeletal: Reports no additional musculoskeletal complaints, Denies numbness and Denies tingling Neurologic: Denies dizziness, Denies loss of vision, Denies numbness and Denies tingling Psychiatric: Psychiatric: Reports no additional psychiatric complaints Endocrine: Endocrine: Reports no additional endocrine complaints Hematologic/Lymphatic: Hematologic/Lymphatic: Reports no additional hematologic/lymphatic complaints Allergic/Immunologic: Allergic/Immunologic: Reports no additional allergic/immunologic complaints PMFSH Past Medical History Attestation statement: The following information was validated with the patient. Source: old records reviewed and nursing notes reviewed Medical History Smoker Hypothyroid Depression Cervical cancer Surgical History History of esophagogastroduodenoscopy (EGD) Hx of colonoscopy Hx of skin graft Hx of removal of cyst Hx of bilateral breast reduction surgery Family History Family History Father No problems noted. Mother No problems noted. Brother Pancreatic cancer Social History Social History Household Members: Spouse and Children Alcohol intake: current Alcohol intake frequency: holidays/special occasions only Patient Tobacco Use Status: Current everyday Tobacco user Cigarette Packs Per Day: 5 Substance Use Type: Methamphetamine Physical Exam ED Vital Signs: Vital Signs - 24 hr 09/15/24 08:21 09/15/24 09:59 09/15/24 13:10 Temperature 100.2 F 99.2 F 99.1 F Pulse Rate 103 H 106 H 102 H Respiratory Rate 19 18 20 Blood Pressure 99/70 109/64 94/61 Pulse Oximetry 96 96 95 Oxygen Delivery Method Room Air Room Air Room Air 09/15/24 13:30 Temperature 99.1 F Pulse Rate 102 H Respiratory Rate 20 Blood Pressure 95/59 L Pulse Oximetry 95 Oxygen Delivery Method Room Air BMI result Body Mass Index 30.8 Const General: cooperative, no acute distress, alert and awake Nutritional Appearance: well nourished Orientation/consciousness: patient oriented x3 Limitations: no limitations HENMT Head: Yes normal to inspection and Yes atraumatic Ears: hearing grossly normal bilaterally and external ears normal General nose exam: Normal external nose present, no nasal discharge noted and no epistaxis Face and sinus: Yes normal facial exam, No abrasion and No laceration Mouth: Normal oral and palatal mucosa present, no drooling and no muffled voice Eyes General: appearance normal, both eyes and all related structures Periorbital: periorbital findings normal Eyelids: Yes eyelids normal Conjunctivae: conjunctivae normal Pupils: Equal, round and reactive pupils present EOM: EOMs intact bilaterally Neck Neck: Yes normal visual inspection, Yes full ROM and Yes no lymphadenopathy Chest Chest palpation & inspection: normal inspection of the chest Resp Effort & Inspection: normal respiratory effort and able to speak in complete sentences GI Inspection: Yes normal to inspection Palpation (GI): Soft to palpation, not firm, Tenderness to palpation present (GI) in the LLQ, no guarding and not rigid Neuro General: patient oriented x3 and moves all extremities Cranial nerves: Yes Equal, round and reactive pupils present Cognition (Neuro): normal cognition Extrem General: Yes normal to inspection, Yes full ROM and Yes capillary refill normal Psych Appearance: grossly normal Mental Status: mental status grossly normal Affect: normal affect Attitude: cooperative Thought process: Normal thought process present Thought content: Normal thought content present Insight: Good insight present (Psych) Medications Administered Discontinued Medications Generic Name Dose Route Start Last Admin Trade Name Roque PRN Reason Stop Dose Admin Acetaminophen 1,000 mg in 100 mls @ 400 mls/hr 09/15/24 08:44 09/15/24 09:12 Ofirmev IV 09/15/24 08:58 Infused ONCE ONE Infusion Sodium Chloride 1,000 mls @ 999 mls/hr 09/15/24 11:15 09/15/24 11:14 Ns IV 09/15/24 12:15 999 mls/hr .Q1H1M LARRY Administration Morphine Sulfate 4 mg 09/15/24 08:25 09/15/24 08:42 Morphine Sulfate 4 Mg/Ml Cartridge IVPUSH 09/15/24 08:26 4 mg ONCE ONE Administration Protocol Ondansetron HCl 4 mg 09/15/24 08:25 09/15/24 08:42 Ondansetron Hcl 4 Mg/2 Ml Vial IVPUSH 09/15/24 08:26 4 mg ONCE ONE Administration Medical Decision Making Medical Decision Making [facility] Narrative: Patient is a 54 year old assigned female at with a history of cervical cancer for which she completed internal and external radiation / treatment in 2013, anxiety, and GERD presenting to the emergency department today with left lower abdominal pain, fever, and nausea. Patient's physical exam showed tenderness to palpation of the left lower quadrant. Patient's blood work showed a mildly elevated WBC count of 13.6 as well as a lipase of 161. Patient's urine showed no acute process. Patient's CT of the abdomen and pelvis showed an appendix with a slightly increased diameter but otherwise unremarkable. Given the patient's exam, blood work, and imaging results - I consulted with the general surgeon it operations manager. He examined the patient after reviewing the imaging and stated he did not believe this to be consistent with an appendicitis and did not recommend any surgical intervention or admission for the patient. I explained my physical exam findings as well as all test results to the patient. I answered all questions asked by the patient. Patient received pain medication which, upon re-evaluation, she stated it helped her symptoms significantly. Patient was able to better characterize her pain after receiving analgesia. She stated that the pain is mostly in her left low back and is worse with movement. Patient confirmed she had no epigastric pain. Patient's clinical presentation is most consistent with a viral illness and musculoskeletal pain. I stressed the importance of the patient taking her medication as directed (either prescribed or as the over the counter packaging recommends). I stressed the importance of the patient following up with her primary care provider. I stressed the importance of the patient returning to the emergency department immediately if her symptoms were to worsen or if she were to develop any dizziness, shortness of breath, difficulty breathing, chest pain, blurry vision, loss of vision, nausea, vomiting, abdominal pain, fever, chills, back pain, or any other complaints. Patient verbalized agreement and understanding with this treatment plan and discharge. Differential Diagnosis Differential Diagnoses: The differential diagnosis associated with the presentation includes Abdominal pain Left low back pain Viral illness Appendicitis UTI Admission/Observation Consideration of admission/observation: Escalation of care including admission/observation considered Patient would have been admitted to the hospital had her work up had any findings where hospital admission was appropriate and her clinical presentation warranted hospital admission. Consult Healthcare Provider Management of the patient was discussed with: Geospatial Technologist (spoke with the surgery team as noted in the MDM Rationale portion of this note.) Lab Data [facility] Lab Attestation statement: I reviewed the patient's lab results. My interpretation of these results are in the MDM Rationale portion of this note. 09/15/24 08:42 09/15/24 08:42 Labs: Lab Results 09/15/24 09/15/24 09/15/24 Range/Units 08:42 11:28 12:33 WBC 13.6 H (4.8-10.8) X10*3/uL RBC 3.79 L (4.20-5.50) X10*6/uL Hgb 12.3 (12.0-16.0) g/dl Hct 35.2 L (37.0-47.0) % MCV 92.9 (80.0-98.0) fL MCH 32.5 (27.0-33.0) pg MCHC 34.9 (31.0-35.0) g/dl RDW 12.6 (11.0-16.0) % Plt Count 194 (160-400) X10*3/uL MPV 8.2 L (9.4-12.3) fL Immature Gran % (Auto) 0.4 (0.0-0.4) % Neut % (Auto) 75.8 H (45-73) % Lymph % (Auto) 14.2 L (20-40) % [place] % (Auto) 9.2 (2-11) % Eos % (Auto) 0.2 (0-4) % Baso % (Auto) 0.2 (0-2) % Lymph # (Auto) 1.9 (1.2-4.9) X10*3/uL [place] # (Auto) 1.3 H (0.1-1.2) X10*3/uL Eos # (Auto) 0.0 (0.0-0.4) X10*3/uL Baso # (Auto) 0.0 (0.0-0.2) X10*3/uL Abs Immat Gran (auto) 0.06 H (0.00-0.03) X10*3/uL Absolute Neuts (auto) 10.3 H (2.0-8.3) x10*3/uL Absolute Nucleated RBC 0.000 (0.0-0.012) X10*3/uL Nucleated RBC % (auto) 0.0 (0.0-0.2) /100WBC Sodium 137 (135-145) mmol/L Potassium 3.6 (3.3-5.1) mmol/L Chloride 104 (96-108) mmol/L Carbon Dioxide 24 (22-29) mmol/L Anion Gap 13 (12-20) BUN 9 (9-16) mg/dL Creatinine 0.62 (0.5-1.4) mg/dL Estim Creat Clear Calc 105.6 Estimated GFR > 60 Random Glucose 109 (60-115) mg/dL Calcium 9.5 D (8.4-10.2) mg/dL Magnesium 1.8 (1.6-2.6) mg/dL Total Bilirubin 1.3 H (0.0-1.0) mg/dL AST 22 (5-31) U/L ALT 14 (0-31) U/L Alkaline Phosphatase 67 (39-117) U/L Total Protein 8.0 (6.5-8.0) g/dL Albumin 4.0 (3.5-5.0) g/dL Lipase 161 H (8-78) U/L Urine Color Dark Yellow Urine Appearance Clear Urine pH 6.0 (5.0-9.0) Ur Specific [place] 1.020 (1.005-1.025) Urine Protein Trace (Neg-Trace) mg/dL Urine Glucose (UA) Negative (Negative) mg/dL Urine Ketones 15 (Negative) mg/dL Urine Blood Moderate (2+) H (Negative) Urine Nitrite Negative (Negative) Ur Leukocyte Esterase Small (1+) H (Negative) Urine RBC 11-20 H (0-2) /HPF Urine WBC 0-5 (0-5) /HPF Ur Squamous Epith Cells 6-10 (0-2) /HPF Urine Bacteria None Seen (None Seen) Hyaline Casts 0-2 (0-2) /LPF Chlam trachomat DNA PCR NOT DETECTED (Not Detect.) Influenza Type A (PCR) NEGATIVE (Negative) Influenza Type B (PCR) NEGATIVE (Negative) N.gonorrhoeae DNA (PCR) NOT DETECTED (Not Detect.) RSV RNA Qual (PCR) NEGATIVE (Negative) SARS-CoV-2 RNA (RT-PCR) NEGATIVE (Negative) T. vaginalis (PCR) NOT DETECTED (Not Detect) Bact vaginosis (PCR) NEGATIVE (Negative) C. krusei/glabrata (PCR) NOT DETECTED (Not Detect) Ethel group (PCR) NOT DETECTED (Not Detect) Independent Interpretation I performed an independent interpretation of an: CT Scan Interpretation: My interpretation is in agreement with the radiologist's impression of this imaging study. Report Number: [id number]: Total DLP = 484.00 mGy-cm CLINICAL HISTORY: LLQ pain radiates to groin CT abdomen and pelvis without contrast Comparison: CT/REG - CT ABDOMEN PELVIS WO CON - 12/27/20 09:34 EDT Findings: The lung bases are clear. The liver, spleen, adrenal glands and pancreas are unremarkable. The gallbladder is distended, likely within normal limits. Kidneys demonstrate neither obstruction or calculus. The appendix extends to near midline, axial images 55 through 62 and is borderline prominent at 8 mm. Reference coronal image 56. No bowel obstruction, free air, abscess or adenopathy. Uterus and adnexa are unremarkable. Mild sclerotic changes along the sacroiliac joints bilaterally, [id number]. Degenerative changes seen within the spine. Impression: Mildly prominent appendix as detailed above. This is increased in diameter versus the most recent comparison study. Acute appendicitis not excluded although there is no significant stranding about the appendix. Otherwise, chronic appearing changes as detailed. This document has been electronically signed by: Giuliano Manriquez MD on 09/15/2024 10:26:16 Dictated By: Giuliano Manriquez MD Signed By: Electronically signed by Giuliano Manriquez MD 09/15/24 1026 Radiology Impression Discussion of test interpretation with radiology: I have reviewed the radiologist's reading. Prescription Management I considered prescription management with: Pain Medication (patient prescribed pain medication) Critical Care Time Critical Care Time Critical Care Time: Yes Total Critical Care Time: 46 Attestation: I spent 46 minutes of Critical Care Time with this patient. This does not include time spent on separately reported billable procedures. Discharge Plan Discharge Clinical Impression: Left lower quadrant abdominal pain, Acute left-sided low back pain, Viral illness Patient Disposition: Home, Self-Care Instructions: Acute Low Back Pain (ED), Viral Syndrome (ED), Abdominal Pain (ED) Additional Instructions: Your work up was unremarkable. Follow up with your primary care provider. Return to the emergency department immediately if your symptoms worsen or if you develop any dizziness, shortness of breath, difficulty breathing, chest pain, blurry vision, loss of vision, nausea, vomiting, abdominal pain, fever, chills, back pain, or any other complaints. Prescriptions: New cyclobenzaprine 5 mg tablet 5 mg PO TID PRN (Reason: low back pain) 7 Days Qty: 21 0RF ondansetron 4 mg tablet,disintegrating 4 mg PO Q8H 3 Days Qty: 9 0RF No Action polyethylene glycol 3350 [Miralax] 17 gram/dose powder 238 g PO ONCE 1 Days Qty: 238 0RF Rx Instructions: Take as directed by mouth the day before your procedure. cyclobenzaprine 10 mg tablet 10 mg PO Q8H Qty: 10 0RF naproxen 500 mg tablet 500 mg PO BID PRN (Reason: pain) Qty: 10 0RF cyclobenzaprine 5 mg tablet 5 mg PO TID PRN (Reason: muscle spasm) Qty: 10 0RF lidocaine 5 % adhesive patch,medicated 1 patch topical DAILY Qty: 15 0RF Rx Instructions: leave on most painful area for up to 12 hrs bisacodyl [Dulcolax (bisacodyl)] 5 mg tablet,delayed release (DR/EC) 10 mg PO ONCE 1 Days Qty: 2 0RF Rx Instructions: Take 2 tablets by mouth at 12:00pm the day before your procedure. omeprazole 20 mg capsule,delayed release(DR/EC) 20 mg PO DAILY Qty: 30 5RF Citrucel 500 mg tablet 500 mg PO BID Qty: 60 5RF simethicone [Gas Relief (simethicone)] 125 mg tablet,chewable 125 mg PO TID-QID PRN (Reason: abdominal distention) Qty: 90 2RF Referrals: Yamila Rhodes MD [Primary Care Provider] - Stand Alone Forms: Work/School Release Interventions: ED Discharge Assessment Last Done: 09/15/24 13:30 Discharge Date/Time: 09/15/24 13:30 Print Language: Cymro
[2024-09-15 08:21] VITALS: BP 108/79; BP 99/70; PULSE 103; PULSE 108; RESP 19; TEMP 37.9; O2SAT 96; O2SAT 97; BMI 30.8
[2024-09-15] MEDS: ondansetron HCL 4 MG/2 ML VIAL IVPUSH (08:42)
[2024-09-15] MEDS: Morphine Sulfate 4 MG/ML CARTRIDGE IVPUSH (08:42)
[2024-09-15 08:48] LABS: Basophils Percent Auto 0.2 % (0-2); Eosinophils Percent Auto 0.2 % (0-4); Hematocrit 35.2 % (37.0-47.0); Hemoglobin 12.3 g/dl (12.0-16.0); Imm Gran Abs Auto 0.06 X10*3/uL (0.00-0.03); Imm Gran Pct Auto 0.4 % (0.0-0.4); Lymphocytes Absolute Auto 1.9 X10*3/uL (1.2-4.9); Lymphocytes Percent Auto 14.2 % (20-40); MANUAL DIFF FLAG NO; Mean Corpuscular HGB Conc 34.9 g/dl (31.0-35.0); Mean Corpuscular Hemoglobin 32.5 pg (27.0-33.0); Mean Corpuscular Volume 92.9 fL (80.0-98.0); Mean Platelet Volume 8.2 fL (9.4-12.3); Monocytes Absolute Auto 1.3 X10*3/uL (0.1-1.2); Monocytes Percent Auto 9.2 % (2-11); Neutrophils Absolute Auto 10.3 x10*3/uL (2.0-8.3); Neutrophils Percent Auto 75.8 % (45-73); Platelet Count 194 X10*3/uL (160-400); Red Blood Count 3.79 X10*6/uL (4.20-5.50); Red Cell Distribution Width 12.6 % (11.0-16.0); White Blood Count 13.6 X10*3/uL (4.8-10.8)
[2024-09-15 08:50] LABS: Appearance Urine Clear; Color Urine Dark Yellow; Glucose Urine UA Negative (Negative); Leukocyte Esterase Urine Small (1+) (Negative); Nitrite Urine Negative (Negative); UMIC TRIGGER UACC YES; Urine Blood Moderate (2+) (Negative); Urine Ketones 15 mg/dL (Negative); Urine Protein Trace mg/dL (Neg-Trace)
--- NOTE | 2024-09-15 08:50 | PC.NURSE ---
biba from home c/o LLQ/groin pain x friday radiating to upper/lower thigh w/ associated fever/nausea. tylenol w/o relief. denies any episodes of vomiting/diarrhea/urinary sx. hx cervical cancer. upon ED arrival - pt a&ox4. vss and up to date aside from having soft BP. pt reporting 10/10 pain at this time. 1:1 assist needed to ambulate to the restroom d/t increased pain. UA obtained/sent to lab. 20gIV placed in the left AC - labs obtained/sent to lab. medication administered per provider order. effectiveness pending. pt waiting to go to CT at this time. on RA w/o difficulty - no sob/wob noted. respirations even/unlabored. plan of care ongoing. call bowser placed within reach.
[2024-09-15] MEDS: Acetaminophen 1,000 MG/100 ML PIGGYBACK 400 MG IV (08:57)
[2024-09-15 09:01] LABS: Alanine Aminotransferase 14 U/L (0-31); Alkaline Phosphatase 67 U/L (39-117); Anion Gap 13 (12-20); Aspartate Amino Transferase 22 U/L (5-31); Bacteria Urine None Seen (None Seen); Bilirubin Total 1.3 mg/dL (0.0-1.0); Blood Urea Nitrogen 9 mg/dL (9-16); Calcium 9.5 mg/dL (8.4-10.2); Carbon Dioxide 24 mmol/L (22-29); Chloride 104 mmol/L (96-108); Creatinine Clr Calc Pharmacy 105.6; Estimated Glomerular Filt Rate > 60; Glucose Random 109 mg/dL (60-115); Hyaline Casts Urine 0-2 /LPF (0-2); Lipase 161 U/L (8-78); Magnesium 1.8 mg/dL (1.6-2.6); Potassium 3.6 mmol/L (3.3-5.1); Sodium 137 mmol/L (135-145); UACC Culture Trigger YES; WBC Urine 0-5 /HPF (0-5)
--- NOTE | 2024-09-15 09:23 | PC.NURSE ---
pt to CT at this time.
[2024-09-15 09:25] LABS: Influenza A PCR NEGATIVE (Negative); Influenza B PCR NEGATIVE (Negative); Resp Syncy Virus RNA Qual PCR NEGATIVE (Negative); SARS COV2 PCR INHOUSE NEGATIVE (Negative)
[2024-09-15 09:59] VITALS: BP 109/64; PULSE 106; RESP 18; TEMP 37.3; O2SAT 96
--- NOTE | 2024-09-15 10:58 | P.CONGS_ITS ---
History of Present Illness Consult details Consult date: 09/15/24 Requesting physician: Sejal Sánchez Narrative: 54-year-old female patient presenting with complaints of abdominal pain began on Friday and was located in the right lower quadrant. This began while she was watching her grandchild who was not sick. Pain became quite severe and sharp in lasted for several minutes and then seemed to resolve. The pain then began to shift into the left lower quadrant and left groin extending into the left thigh. The pain was associated with fevers intermittently into the 100 range. She reports nausea without vomiting. Her bowels changed to some degree with what she reported as strange shape and yellow color. She denies any sick contacts. She presented to the emergency department because of the persistent fevers. Workup here revealed an elevated WBC of 13.6. CT of the abdomen revealed a slightly increased diameter of the appendix without inflammatory changes when compared to the previous CT from several years ago. No other significant changes were noted to explain the patient's symptoms. Surgery consultation was requested to evaluate for appendicitis. Review of Systems 2 Review of Systems: Yes all other systems are reviewed and are negative PMFSH Past Medical History Medical History Smoker Hypothyroid Depression Cervical cancer Family History Family History Father No problems noted. Mother No problems noted. Brother Pancreatic cancer Surgical History Surgical History History of esophagogastroduodenoscopy (EGD) Hx of colonoscopy Hx of skin graft Hx of removal of cyst Hx of bilateral breast reduction surgery Social History Social History Household Members: Spouse and Children Alcohol intake: current Alcohol intake frequency: holidays/special occasions only Patient Tobacco Use Status: Current everyday Tobacco user Cigarette Packs Per Day: 5 Smoked in Last 30 Days: No Use of substances other than those prescribed or required for medical reasons: No Substance Use Type: Methamphetamine Advance Directives: No Advance Directives Information Provided: No Do you have a plan to hurt others: No Plan Patient : No Meds Allergies Allergy/AdvReac Type Severity Reaction Status Date / Time No Known Allergies Allergy Verified 09/15/24 08:23 Physical Exam 2 Vital Signs: Vital Signs: Last Vital Signs Temp 99.2 F 09/15/24 09:59 Pulse 106 H 09/15/24 09:59 Resp 18 09/15/24 09:59 BP 109/64 09/15/24 09:59 Pulse Ox 96 09/15/24 09:59 O2 Del Method Room Air 09/15/24 09:59 BMI result Body Mass Index 30.8 Const: General: no acute distress Nutritional Appearance: well nourished Orientation/consciousness: patient oriented x3 Limitations: no limitations HEENT: Other: Fever blister on lip Head: Yes normocephalic and Yes atraumatic Resp: Effort & Inspection: normal respiratory effort, no audible wheezes, no cough and no respiratory distress GI: Inspection: Yes normal to inspection Palpation (GI): Soft to palpation, nontender, no guarding, not rigid, No hepatosplenomegaly present and No Rebound tenderness present Percussion: Yes normal to percussion Auscultation: n ormal bowel sounds Rectal Exam - Female: deferred Skin: General skin exam: no rashes or lesions noted Neuro: General: patient oriented x3 Extrem: General: Yes no clubbing, cyanosis or edema Results Labs 09/15/24 08:42 09/15/24 08:42 Labs: Abnormal lab results 09/15/24 Range/Units 08:42 WBC 13.6 H (4.8-10.8) X10*3/uL RBC 3.79 L (4.20-5.50) X10*6/uL Hct 35.2 L (37.0-47.0) % MPV 8.2 L (9.4-12.3) fL Neut % (Auto) 75.8 H (45-73) % Lymph % (Auto) 14.2 L (20-40) % [place] # (Auto) 1.3 H (0.1-1.2) X10*3/uL Abs Immat Gran (auto) 0.06 H (0.00-0.03) X10*3/uL Absolute Neuts (auto) 10.3 H (2.0-8.3) x10*3/uL Total Bilirubin 1.3 H (0.0-1.0) mg/dL Lipase 161 H (8-78) U/L Urine Blood Moderate (2+) H (Negative) Ur Leukocyte Esterase Small (1+) H (Negative) Urine RBC 11-20 H (0-2) /HPF Short CBC 09/15/24 Range/Units 08:42 WBC 13.6 H (4.8-10.8) X10*3/uL Hgb 12.3 (12.0-16.0) g/dl Hct 35.2 L (37.0-47.0) % Plt Count 194 (160-400) X10*3/uL BMP 09/15/24 08:42 Sodium 137 Potassium 3.6 Chloride 104 Carbon Dioxide 24 BUN 9 Creatinine 0.62 Calcium 9.5 D Liver Function 09/15/24 Range/Units 08:42 Total Bilirubin 1.3 H (0.0-1.0) mg/dL AST 22 (5-31) U/L ALT 14 (0-31) U/L Alkaline Phosphatase 67 (39-117) U/L Albumin 4.0 (3.5-5.0) g/dL Urine 09/15/24 Range/Units 08:42 Urine Color Dark Yellow Urine Appearance Clear Urine pH 6.0 (5.0-9.0) Ur Specific [place] 1.020 (1.005-1.025) Urine Protein Trace (Neg-Trace) mg/dL Urine Glucose (UA) Negative (Negative) mg/dL All other labs normal. Assessment and Plan (1) Fever: Qualifiers: Fever type: unspecified Qualified Code(s): R50.9 - Fever, unspecified Status: Acute (2) Abdominal pain, left lower quadrant: Status: Acute Plan 54-year-old female patient presenting with complaints of lower abdominal pain mainly in the left lower quadrant extending into the left leg with associated fever of unknown origin. Examination reveals her abdomen to be soft and nondistended with no tenderness in the right lower quadrant and no rebound, guarding or rigidity. Laboratories revealed a mildly elevated WBC. CT abdomen and pelvis reveals an appendix that is increased in size from the previous CT although it generally appears normal with no surrounding inflammatory changes or evidence of perforation/abscess. Patient's symptoms and CT findings do not appear consistent with acute appendicitis and can not explain the patient's fever and left groin/leg pain. No surgical intervention is recommended at this time. Procedures Date of Service Date of Service: 09/15/24
[2024-09-15] MEDS: 0.9 % Sodium Chloride 1,000 ML 999 ML IV (11:14)
[2024-09-15 12:35] LABS: Bacterial Vaginosis PCR NEGATIVE (Negative); Candida Group PCR NOT DETECTED (Not Detect); Candida glab krusei PCR NOT DETECTED (Not Detect); Trichomonas vaginalis PCR NOT DETECTED (Not Detect)
[2024-09-15 13:10] VITALS: BP 94/61; PULSE 102; RESP 20; TEMP 37.3; O2SAT 95
[2024-09-15 13:30] VITALS: BP 95/59; PULSE 102; RESP 20; TEMP 37.3; O2SAT 95
[2024-09-15 14:19] LABS: CT PCR NOT DETECTED (Not Detect.); NG PCR NOT DETECTED (Not Detect.)
== END 2024-09-15 13:30 | disposition home or self-care (01) ==
PROVIDERS: Physician Assistant Medical; Emergency Provider Emergency Medicine; PCP Student in an Organized Health Care Education/Training Program
DX: B34.9 Viral infection, unspecified (principal); R10.32 Left lower quadrant pain; M54.50 Low back pain, unspecified; R50.9 Fever, unspecified; Z03.818 Encounter for observation for suspected exposure to other biological agents ruled out; F17.210 Nicotine dependence, cigarettes, uncomplicated; Z85.41 Personal history of malignant neoplasm of cervix uteri
CPT/HCPCS: 0241U; 0352U; 36415; 74176; 80053; 81001; 83690; 83735; 85025; 87086; 87491; 87591; 96374; 96375; 99284; 99285; J0131; J2270; J2405

== ENCOUNTER → 2024-09-15 08:25 | Outpatient (BNV) | payer MEDICAID, SELFPAY | PROVIDERS: Emergency Provider Emergency Medicine; PCP Student in an Organized Health Care Education/Training Program; Visit Provider Radiology Vascular & Interventional Radiology | DX: R10.32 Left lower quadrant pain (principal) | CPT/HCPCS: 74176 ==

== ENCOUNTER → 2024-09-15 08:38 | Outpatient (BNV) | payer MEDICAID, SELFPAY | PROVIDERS: Emergency Provider Emergency Medicine; PCP Student in an Organized Health Care Education/Training Program; Visit Provider Surgery | DX: R50.9 Fever, unspecified (principal); R10.32 Left lower quadrant pain | CPT/HCPCS: 99283 ==

== ENCOUNTER 2024-09-30 12:47 | Emergency (ER) | payer MEDICAID, SELFPAY ==
--- NOTE | ~2024-09-30 | CT_ITS ---
CLINICAL HISTORY: RLQ tenderness CT abdomen and pelvis with contrast Comparison: CT of the abdomen and pelvis from 09/15/2024. Findings: Mild bibasilar atelectasis and/or scarring. Mild liver surface nodularity concerning for contours of the cirrhosis. Mild fat deposition of the liver noted adjacent to the falciform ligament. Pharyngeal cap of the gallbladder are noted. The adrenal glands are normal. Spleen is nonenlarged. Mild volume loss of the pancreas. No hydronephrosis. Small mesenteric and periaortic lymph nodes are nonspecific. Trace/minimal hiatal hernia No small bowel dilatation to support small-bowel obstruction. Abnormal bowel wall predominately involves the terminal ileum (image number 67 of series 3). Adjacent appendix is gas-filled and nondilated. Severe stool burden is noted, including in the cecum. Uterus is anteverted and deviates to the right. No adnexal soft tissue mass by CT. Vascular calcifications include phleboliths in the pelvis. Mild free fluid in the abdomen and pelvis nonspecific and may be secondary to inflammation such as cystitis and terminal ileitis. Ldrxbkwj-dj-bnlxuh wall thickening of the urinary bladder is noted. Mild asymmetric sclerosis of the SI joints as can be associated with autoimmune disorders. Partial transitional vertebral anatomy with right-sided sacralization of the L5. Vacuum disc phenomenon, disc bulge, ligament calcification at L4-L5 by this numbering system. IMPRESSION: 1. Abnormal appearance of small intestine wall concerning for terminal ileitis as can be associated with inflammatory bowel disease such as Crohn's. No resulting small bowel obstruction at this time. 2. Mild free fluid in the abdomen and pelvis. 3. Nonspecific wall thickening of the urinary bladder. 4. Question mild liver surface contour abnormality concerning for mild and/or early cirrhotic change. This document has been electronically signed by: Homer Dodson MD on 09/30/2024 20:26:30
--- NOTE | ~2024-09-30 | XR_ITS ---
EXAMINATION: XR LUMBOSACRAL SPINE CLINICAL INFORMATION: pain COMPARISON: None available. Correlation made with CT abdomen and pelvis 09/15/2024. TECHNIQUE: Three views of the lumbosacral spine. FINDINGS: Normal bone mineralization. No fracture, compression deformity, traumatic subluxation, or suspicious bone lesion. No scoliosis. Normal lordosis. Trace degenerative retrolisthesis of L3 upon L4. Otherwise normal sagittal alignment. Partial sacralization of the right aspect of L5 noted. Moderate to severe disc space loss L4-5 with sclerotic endplate changes. Mild loss at L5-S1. Otherwise, only minimal disc degeneration at the levels superior to L4. Normal facet alignment. No pars defects. Mild sclerotic facet degeneration L4-S1. Sacrum and SI joints are intact and unremarkable. No soft tissue abnormalities. XR/XR lumbar spine 2-3V IMPRESSION: 1. No acute findings lumbar spine. 2. Partial sacralization of right aspect of L5. 3. Degenerative spondylosis as discussed. Electronically signed by: Tera Prasad MD 09/30/2024 04:32 PM [facility]
[2024-09-30 12:56] VITALS: BP 102/70; PULSE 106; O2SAT 96
[2024-09-30 14:40] VITALS: BP 96/67; PULSE 97; RESP 16; TEMP 36.8; O2SAT 97; BMI 29.9
--- NOTE | 2024-09-30 15:25 | ED_ITS ---
HPI - Back Pain/Injury General Chief Complaint: Back Pain/Injury Stated Complaint: LOW BACK PAIN X2W,SEEN FOR SAME 2W AGO PER EMS Time Seen by Provider: 09/30/24 16:43 Source: patient, RN notes reviewed and old records reviewed Mode of arrival: ambulatory Limitations: no limitations History of Present Illness ED Provider: Jamar HPI Narrative: Patient is a 54-year-old female with history of cervical cancer treated with internal and external radiation in 2013, anxiety, GERD presenting to the emergency department with complaint of ongoing lower abdominal and back pain since 09/14. Reports fevers at home, states temperature this am was 100.8. Took 500mg Tylenol at breakfast. Complains of nausea, decreased appetite. Also reports urinary frequency. Has been taking Tylenol, Flexeril with little change in pain. Denies saddle anesthesia or bowel/bladder incontinence. States pain radiates down left leg. MD elicited complaint: back pain Onset (ago): week(s) Timing: constant Similar Symptoms Previously: Yes Treatments prior to arrival: acetaminophen and other medications Work related injury: No Related Data Previous Rx's ?Medication ?Instructions ?Recorded cyclobenzaprine 10 mg tablet 10 mg PO Q8H Muscle spasm #10 tabs 12/27/20 naproxen 500 mg tablet 500 mg PO BID PRN pain #10 tabs 12/27/20 bisacodyl 5 mg tablet,delayed 10 mg (2 x 5 mg) PO ONCE 12/26/21 release (Dulcolax (bisacodyl)) colonoscopy prep 1 day #2 tabs methylcellulose (laxative) 500 mg 500 mg PO BID #60 tabs 12/26/21 tablet (Citrucel) omeprazole 20 mg capsule,delayed 20 mg PO DAILY #30 caps 12/26/21 release simethicone 125 mg chewable tablet 125 mg PO TID-QID PRN abdominal 12/26/21 (Gas Relief (simethicone)) distention #90 tabs polyethylene glycol 3350 17 238 g PO ONCE 1 day #238 grams 04/01/22 gram/dose oral powder (Miralax) cyclobenzaprine 5 mg tablet 5 mg PO TID PRN muscle spasm #10 10/07/23 tabs lidocaine 5 % topical patch 1 patch topical DAILY #15 ea 10/07/23 cyclobenzaprine 5 mg tablet 5 mg PO TID PRN low back pain 7 09/15/24 days #21 tabs ondansetron 4 mg disintegrating 4 mg PO Q8H 3 days #9 tabs 09/15/24 tablet methocarbamol 750 mg tablet 750 mg PO TID PRN pain, moderate 09/30/24 #15 tabs methylprednisolone 4 mg tablets in 4 mg PO QAM #1 ea 09/30/24 a dose pack (Medrol (Filiberto)) Allergies Allergy/AdvReac Type Severity Reaction Status Date / Time No Known Allergies Allergy Verified 09/30/24 14:43 Review of Systems 2 Review of Systems: As per HPI Yes all other systems are reviewed and are negative Constitutional: Constitutional: Reports as per HPI PMFSH Past Medical History Medical History Smoker Hypothyroid Depression Cervical cancer Surgical History History of esophagogastroduodenoscopy (EGD) Hx of colonoscopy Hx of skin graft Hx of removal of cyst Hx of bilateral breast reduction surgery Family History Family History Father No problems noted. Mother No problems noted. Brother Pancreatic cancer Social History Social History Household Members: Spouse and Children Alcohol intake: current Alcohol intake frequency: holidays/special occasions only Patient Tobacco Use Status: Current everyday Tobacco user Cigarette Packs Per Day: 5 Substance Use Type: Methamphetamine Advance Directives: No Advance Directives Information Provided: Yes Physical Exam 2 Vital Signs: Vital Signs: Last Vital Signs Temp 98.3 F 09/30/24 21:49 Pulse 97 09/30/24 21:49 Resp 16 09/30/24 21:49 BP 96/67 09/30/24 21:49 Pulse Ox 97 09/30/24 21:49 O2 Del Method Room Air 09/30/24 21:49 BMI result Body Mass Index 29.9 Vital signs have been reviewed and appear to be correct. Blood pressure normal. Heart rate normal. Respiratory rate normal. Temperature normal. Oxygen saturation normal. Const: General: cooperative, healthy appearing and no acute distress O rientation/consciousness: oriented to person, oriented to place, oriented to time and patient oriented x3 Limitations: no limitations HEENT: Head: Yes normocephalic and Yes atraumatic Ears: external ears normal General nose exam: Normal external nose present Face and sinus: Yes face symmetric Mouth: oropharynx normal and moist mucous membranes Throat: Yes uvula midline Eyes: Pupils: Equal, round and reactive pupils present Neck: Neck: Yes normal visual inspection and Yes supple Resp: Effort & Inspection: normal respiratory effort and able to speak in complete sentences Auscultation: clear to auscultation bilaterally Cardio: Rate: regular rate Rhythm: regular rhythm Heart sounds: S1 normal heart sound present and S2 normal heart sound present GI: Inspection: Yes normal to inspection Palpation (GI): Soft to palpation, Tenderness to palpation present (GI) in the LLQ and in the RLQ; with no rebound tenderness and no guarding Auscultation: normoactive bowel sounds : General: Yes no CVA tenderness Back/Spine/Pelvis: Back: no CVA tenderness Thoracic/Lumbar Spine: thoracic and lumbar spine normal to inspection, pain with thoraco-lumbar ROM, No thoracic spinal tenderness, No lumbar spinal tenderness and straight leg raise positive left at 30 degrees Skin: General skin exam: elasticity normal and turgor normal Neuro: General: oriented to person, oriented to place, oriented to time, patient oriented x3, moves all extremities, no focal motor deficits and CN's II- XI intact bilaterally Cranial nerves: Yes Equal, round and reactive pupils present Cognition (Neuro): normal cognition Extrem: General: Yes full ROM, Yes no pedal edema and Yes no calf tenderness Psych: Mental Status: mental status grossly normal Affect: normal affect Thought process: Normal thought process present Course Course Course Narrative: Lloyd Solis PA-C have accepted care of the patient and signed out pending imaging and final disposition CT abdomen and pelvis:IMPRESSION: 1. Abnormal appearance of small intestine wall concerning for terminal ileitis as can be associated with inflammatory bowel disease such as Crohn's. No resulting small bowel obstruction at this time. 2. Mild free fluid in the abdomen and pelvis. 3. Nonspecific wall thickening of the urinary bladder. 4. Question mild liver surface contour abnormality concerning for mild and/or early cirrhotic change. This document has been electronically signed by: Homer Dodson MD on 09/30/2024 20:26:30 Given the findings, I re-evaluated the patient. She has no pain elicited with deep palpation of the abdomen. Furthermore she has no complaint of abdominal pain. She says she is nauseous sometimes, however no active vomiting no diarrhea in particular no bloody diarrhea. I will be sending her with the contact for Dr. Moseley, the sales and service associate who is on-call. She knows she needs to follow up with the primary care provider. I am sending her with medications to treat her sciatica symptoms. Medications Administered Discontinued Medications Generic Name Dose Route Start Last Admin Trade Name Roque PRN Reason Stop Dose Admin Iohexol 100 ml 09/30/24 19:31 09/30/24 19:31 Iohexol 350 Mg/Ml 100 Ml Infus..Btl IV 09/30/24 19:32 85 ml ONCE ONE Administration Ketorolac Tromethamine 15 mg 09/30/24 21:18 09/30/24 21:37 Ketorolac Tromethamine 15 Mg/Ml Vial IVPUSH 09/30/24 21:19 15 mg ONCE ONE Administration Methocarbamol 750 mg 09/30/24 21:18 09/30/24 21:38 Methocarbamol 750 Mg Tablet PO 09/30/24 21:19 750 mg ONCE ONE Administration Medical Decision Making Medical Decision Making [facility] Narrative: Patient is a 54-year-old female with history of cervical cancer treated with internal and external radiation in 2013, anxiety, GERD presenting to the emergency department with complaint of ongoing lower abdominal and back pain since 09/14. On exam patient is awake, A+Ox3, VS WNL, afebrile, normal neurological exam without focal deficits, physical exam findings as above. Given reported symptoms and physical exam findings, initial differential includes but is not limited to appendicitis, ureteral calculi, UTI/pyelonephritis, lumbar strain, lumbar radiculopathy. CT A/P from 09/15 showed appendix with slightly increased diameter, surgery was consulted and did not suspect appendicitis at that time. Labs notable for no leukocytosis or left shift, no significant electrolyte abnormalities, mildly elevated CRP. Patient signed out to SHAYY Garner pending UA and CT. Differential Diagnosis Differential Diagnoses: The differential diagnosis associated with the presentation includes As per [facility] Admission/Observation Consideration of admission/observation: Escalation of care including admission/observation considered Lab Data [facility] Lab Attestation statement: I reviewed the patient's lab results. As per [facility] 09/30/24 17:51 09/30/24 17:51 Labs: Lab Results 09/30/24 09/30/24 Range/Units 17:51 19:48 WBC 9.4 (4.8-10.8) X10*3/uL RBC 3.52 L (4.20-5.50) X10*6/uL Hgb 11.4 L (12.0-16.0) g/dl Hct 34.3 L (37.0-47.0) % MCV 97.4 (80.0-98.0) fL MCH 32.4 (27.0-33.0) pg MCHC 33.2 (31.0-35.0) g/dl RDW 12.5 (11.0-16.0) % Plt Count 350 D (160-400) X10*3/uL MPV 7.8 L (9.4-12.3) fL Immature Gran % (Auto) 0.4 (0.0-0.4) % Neut % (Auto) 68.9 (45-73) % Lymph % (Auto) 23.2 (20-40) % [place]eadle % (Auto) 7.0 (2-11) % Eos % (Auto) 0.2 (0-4) % Baso % (Auto) 0.3 (0-2) % Lymph # (Auto) 2.2 (1.2-4.9) X10*3/uL [place] # (Auto) 0.7 (0.1-1.2) X10*3/uL Eos # (Auto) 0.0 (0.0-0.4) X10*3/uL Baso # (Auto) 0.0 (0.0-0.2) X10*3/uL Abs Immat Gran (auto) 0.04 H (0.00-0.03) X10*3/uL Absolute Neuts (auto) 6.5 (2.0-8.3) x10*3/uL Absolute Nucleated RBC 0.000 (0.0-0.012) X10*3/uL Nucleated RBC % (auto) 0.0 (0.0-0.2) /100WBC ESR 96 H (0-20) MM/HR Sodium 143 (135-145) mmol/L Potassium 3.4 (3.3-5.1) mmol/L Chloride 108 (96-108) mmol/L Carbon Dioxide 29 (22-29) mmol/L Anion Gap 9 L (12-20) BUN 9 (9-16) mg/dL Creatinine 0.56 (0.5-1.4) mg/dL Estim Creat Clear Calc 115.2 Estimated GFR > 60 Random Glucose 111 (60-115) mg/dL Calcium 8.4 D (8.4-10.2) mg/dL Total Bilirubin 0.2 (0.0-1.0) mg/dL AST 23 (5-31) U/L ALT 15 (0-31) U/L Alkaline Phosphatase 75 (39-117) U/L C-Reactive Protein 1.83 H (< or = 0.50) mg/dL Total Protein 7.9 (6.5-8.0) g/dL Albumin 3.1 L (3.5-5.0) g/dL Urine Color Dark Yellow Urine Appearance Turbid Urine pH 5.5 (5.0-9.0) Ur Specific [place] >= 1.030 H (1.005-1.025) Urine Protein Trace (Neg-Trace) mg/dL Urine Glucose (UA) Negative (Negative) mg/dL Urine Ketones Trace (Negative) mg/dL Urine Blood Negative (Negative) Urine Nitrite Negative (Negative) Ur Leukocyte Esterase Small (1+) H (Negative) Urine RBC 3-5 H (0-2) /HPF Urine WBC 11-20 H (0-5) /HPF Ur Squamous Epith Cells >20 (0-2) /HPF Calcium Oxalate Crystal Present Urine Bacteria Trace (None Seen) Hyaline Casts 6-10 (0-2) /LPF External Record Review External record reviewed: Inpatient record, Office record and Outpatient record Attestation Attending Attestation: I was personally present and available for consultation in the ED. I have reviewed everything on the chart that is available and agree with the documentation provided by the DENIS including discussion about the assessment, treatment plan and discussion. Based on medical record the care appears appropriate. Jimmy Baires MD [facility] Emergency Medicine Discharge Plan Discharge Clinical Impression: Abdominal pain, Ileitis, Left lumbar radiculopathy Patient Disposition: Home, Self-Care Instructions: Lumbar Radiculopathy (ED), Lower Back Exercises (ED), Enteritis (ED) Additional Instructions: The CT scan revealed that you have inflammation and a part of your small intestine. See home care instructions. You need to follow up with your primary care provider, in order to see the sales and service associate, Dr. Moseley. I am providing you with her contact. You should call to make an appointment. In regard to your back pain, you are being treated for sciatica. See home care instructions. Exercise and weight loss are instrumental in helping to alleviate your symptoms and prevent further episodes. Use the Medrol Dosepak as directed, this is a steroid, take it in the morning. Use the methocarbamol, this is a muscle relaxant, for further discomfort. To know it will cause drowsiness do not drive or operate machinery while taking this medication. Your primary care will likely refer you for physical therapy if your symptoms persist. Prescriptions: New methylprednisolone [Medrol (Filiberto)] 4 mg tablets,dose pack 4 mg PO QAM Qty: 1 0RF Rx Instructions: Take per package instruction methocarbamol 750 mg tablet 750 mg PO TID PRN (Reason: pain, moderate) Qty: 15 0RF No Action polyethylene glycol 3350 [Miralax] 17 gram/dose powder 238 g PO ONCE 1 Days Qty: 238 0RF Rx Instructions: Take as directed by mouth the day before your procedure. cyclobenzaprine 10 mg tablet 10 mg PO Q8H Qty: 10 0RF naproxen 500 mg tablet 500 mg PO BID PRN (Reason: pain) Qty: 10 0RF cyclobenzaprine 5 mg tablet 5 mg PO TID PRN (Reason: low back pain) 7 Days Qty: 21 0RF ondansetron 4 mg tablet,disintegrating 4 mg PO Q8H 3 Days Qty: 9 0RF cyclobenzaprine 5 mg tablet 5 mg PO TID PRN (Reason: muscle spasm) Qty: 10 0RF lidocaine 5 % adhesive patch,medicated 1 patch topical DAILY Qty: 15 0RF Rx Instructions: leave on most painful area for up to 12 hrs bisacodyl [Dulcolax (bisacodyl)] 5 mg tablet,delayed release (DR/EC) 10 mg PO ONCE 1 Days Qty: 2 0RF Rx Instructions: Take 2 tablets by mouth at 12:00pm the day before your procedure. omeprazole 20 mg capsule,delayed release(/EC) 20 mg PO DAILY Qty: 30 5RF Citrucel 500 mg tablet 500 mg PO BID Qty: 60 5RF simethicone [Gas Relief (simethicone)] 125 mg tablet,chewable 125 mg PO TID-QID PRN (Reason: abdominal distention) Qty: 90 2RF Referrals: Mindy Moseley MD [Physician] - (terminal ileitis on CT, no active GI sxs in ED, no belly pain) Stand Alone Forms: Work/School Release Interventions: ED Discharge Assessment Last Done: 09/30/24 21:49 Discharge Date/Time: 09/30/24 21:50 Print Language: Togolese
[2024-09-30 17:55] LABS: MANUAL DIFF FLAG NO
[2024-09-30 18:05] LABS: Basophils Percent Auto 0.3 % (0-2); Eosinophils Percent Auto 0.2 % (0-4); Hematocrit 34.3 % (37.0-47.0); Hemoglobin 11.4 g/dl (12.0-16.0); Imm Gran Abs Auto 0.04 X10*3/uL (0.00-0.03); Imm Gran Pct Auto 0.4 % (0.0-0.4); Lymphocytes Absolute Auto 2.2 X10*3/uL (1.2-4.9); Lymphocytes Percent Auto 23.2 % (20-40); Mean Corpuscular HGB Conc 33.2 g/dl (31.0-35.0); Mean Corpuscular Hemoglobin 32.4 pg (27.0-33.0); Mean Corpuscular Volume 97.4 fL (80.0-98.0); Mean Platelet Volume 7.8 fL (9.4-12.3); Monocytes Absolute Auto 0.7 X10*3/uL (0.1-1.2); Neutrophils Absolute Auto 6.5 x10*3/uL (2.0-8.3); Neutrophils Percent Auto 68.9 % (45-73); Platelet Count 350 X10*3/uL (160-400); Red Blood Count 3.52 X10*6/uL (4.20-5.50); Red Cell Distribution Width 12.5 % (11.0-16.0); White Blood Count 9.4 X10*3/uL (4.8-10.8)
[2024-09-30 18:14] LABS: Alanine Aminotransferase 15 U/L (0-31); Albumin Level 3.1 g/dL (3.5-5.0); Alkaline Phosphatase 75 U/L (39-117); Anion Gap 9 (12-20); Aspartate Amino Transferase 23 U/L (5-31); Bilirubin Total 0.2 mg/dL (0.0-1.0); Blood Urea Nitrogen 9 mg/dL (9-16); C Reactive Protein 1.83 mg/dL (< or = 0.50); Calcium 8.4 mg/dL (8.4-10.2); Carbon Dioxide 29 mmol/L (22-29); Chloride 108 mmol/L (96-108); Creatinine Clr Calc Pharmacy 115.2; Estimated Glomerular Filt Rate > 60; Glucose Random 111 mg/dL (60-115); Potassium 3.4 mmol/L (3.3-5.1); Sodium 143 mmol/L (135-145); Total Protein 7.9 g/dL (6.5-8.0)
[2024-09-30] MEDS: iohexoL 350 MG/ML 100 ML INFUS..BTL IV (19:31)
[2024-09-30 20:15] LABS: Appearance Urine Turbid; Color Urine Dark Yellow; Glucose Urine UA Negative (Negative); Leukocyte Esterase Urine Small (1+) (Negative); Nitrite Urine Negative (Negative); PH 5.5 (5.0-9.0); Specific Gravity - Urine >= 1.030 (1.005-1.025); UMIC TRIGGER UACC YES; Urine Blood Negative (Negative); Urine Ketones Trace mg/dL (Negative); Urine Protein Trace mg/dL (Neg-Trace)
[2024-09-30 21:18] LABS: Erythrocyte Sedimentation Rate 96 MM/HR (0-20)
[2024-09-30] MEDS: Ketorolac Tromethamine 15 MG/ML VIAL IVPUSH (21:37)
[2024-09-30] MEDS: methocarbamoL 750 MG TABLET PO (21:38)
[2024-09-30 21:49] VITALS: BP 96/67; PULSE 97; RESP 16; TEMP 36.8; O2SAT 97
[2024-09-30 22:01] LABS: Bacteria Urine Trace (None Seen); Calcium Oxalate Crystals Urine Present; Squamous Epithelial Cell Urine >20 /HPF (0-2); UACC Culture Trigger YES
== END 2024-09-30 21:50 | disposition home or self-care (01) ==
PROVIDERS: Registered Nurse Emergency; Emergency Provider Emergency Medicine; PCP Student in an Organized Health Care Education/Training Program
DX: K52.9 Noninfective gastroenteritis and colitis, unspecified (principal); M54.16 Radiculopathy, lumbar region; R11.0 Nausea; R35.0 Frequency of micturition; R10.9 Unspecified abdominal pain; M54.50 Low back pain, unspecified; F17.210 Nicotine dependence, cigarettes, uncomplicated; Z79.899 Other long term (current) drug therapy
CPT/HCPCS: 36415; 72100; 74177; 80053; 81001; 81003; 85025; 85652; 86140; 87086; 96374; 99283; 99284; J1885; Q9967

== ENCOUNTER → 2024-09-30 15:25 | Outpatient (BNV) | payer MEDICAID, SELFPAY | PROVIDERS: Emergency Provider Emergency Medicine; PCP Student in an Organized Health Care Education/Training Program; Visit Provider Radiology Diagnostic Radiology | DX: N32.89 Other specified disorders of bladder (principal); M47.896 Other spondylosis, lumbar region | CPT/HCPCS: 72100; 74177 ==

== ENCOUNTER 2025-03-12 17:27 | Emergency (ER) | payer MEDICAID, SELFPAY ==
--- NOTE | 2025-03-12 17:30 | ED.EAR ---
HPI - Ear Problem General Chief complaint: Ear Problems Stated complaint: rt and left ear/bugs in the ear Time Seen by Provider: 03/12/25 17:34 Source: patient Mode of arrival: ambulatory Limitations: no limitations History of Present Illness ED Provider: Katya Snow APRN HPI Narrative: 54-year-old female with history of cervical cancer treated with internal and external radiation in 2013, anxiety, GERD here with complaints of bilateral ear pain R>L, ear pressure. Reports today she looked in her right ear with a camera device she got from [employer] and was concerned that she saw a egg inside. No recent URI symptoms. No ear discharge. No hearing change. Related Data Previous Rx's ?Medication ?Instructions ?Recorded cyclobenzaprine 10 mg tablet 10 mg PO Q8H Muscle spasm #10 tabs 12/27/20 naproxen 500 mg tablet 500 mg PO BID PRN pain #10 tabs 12/27/20 bisacodyl 5 mg tablet,delayed 10 mg (2 x 5 mg) PO ONCE 12/26/21 release (Dulcolax (bisacodyl)) colonoscopy prep 1 day #2 tabs methylcellulose (laxative) 500 mg 500 mg PO BID #60 tabs 12/26/21 tablet (Citrucel) omeprazole 20 mg capsule,delayed 20 mg PO DAILY #30 caps 12/26/21 release simethicone 125 mg chewable tablet 125 mg PO TID-QID PRN abdominal 12/26/21 (Gas Relief (simethicone)) distention #90 tabs polyethylene glycol 3350 17 238 g PO ONCE 1 day #238 grams 04/01/22 gram/dose oral powder (Miralax) cyclobenzaprine 5 mg tablet 5 mg PO TID PRN muscle spasm #10 10/07/23 tabs lidocaine 5 % topical patch 1 patch topical DAILY #15 ea 10/07/23 cyclobenzaprine 5 mg tablet 5 mg PO TID PRN low back pain 7 09/15/24 days #21 tabs ondansetron 4 mg disintegrating 4 mg PO Q8H 3 days #9 tabs 09/15/24 tablet methocarbamol 750 mg tablet 750 mg PO TID PRN pain, moderate 09/30/24 #15 tabs methylprednisolone 4 mg tablets in 4 mg PO QAM #1 ea 09/30/24 a dose pack (Medrol (Filiberto)) amoxicillin 500 mg capsule 500 mg PO BID #20 caps 03/12/25 loratadine 10 mg tablet (Claritin) 10 mg PO DAILY #30 tabs 03/12/25 triamcinolone acetonide 55 mcg 2 spray intranasal DAILY #16.9 mL 03/12/25 nasal spray aerosol (Nasacort) Allergies Allergy/AdvReac Type Severity Reaction Status Date / Time No Known Allergies Allergy Verified 03/12/25 17:31 Review of Systems Review of Systems: Yes all other systems are reviewed and are negative Constitutional: Constitutional: Reports no additional constitutional complaints, Denies body ache(s), Denies chills, Denies fever(s), Denies headache(s) and Denies weakness Eyes: Eyes: Reports no additional eye complaints and Denies change in vision ENT: Reports system reviewed and no additional complaints, except as documented, Denies dizziness, Reports otalgia, Denies headache(s), Denies nasal congestion, Denies nasal discharge and Denies neck pain Cardiovascular: Cardiovascular: Reports no additional cardiovascular complaints, Denies chest pain, Denies leg edema and Denies dyspnea Respiratory: Respiratory: Reports no additional respiratory complaints, Denies cough and Denies dyspnea Gastrointestinal: Gastrointestinal: Reports no additional gastrointestinal complaints, Denies abdominal pain, Denies diarrhea, Denies nausea and Denies vomiting Genitourinary: Genitourinary: Reports no additional female genitourinary complaints and Denies urinary incontinence Musculoskeletal: Musculoskeletal: Reports no additional musculoskeletal complaints, Denies back pain, Denies arthralgias, Denies joint swelling, Denies neck pain, Denies numbness and Denies tingling Integumentary/Breasts: Skin/Breast: Reports system reviewed and no additional complaints, except as docu and Denies rash Neurologic: Reports system reviewed and no additional complaints, except as documented, Denies Abnormal speech present, Denies dizziness, Denies headache(s), Denies numbness, Denies tingling and Denies weakness PMFSH Past Medical History Attestation statement: The following information was validated with the patient. Source: old records reviewed and nursing notes reviewed Medical History Smoker Hypothyroid Depression Cervical cancer Surgical History History of esophagogastroduodenoscopy (EGD) Hx of colonoscopy Hx of skin graft Hx of removal of cyst Hx of bilateral breast reduction surgery Family History Family History Father No problems noted. Mother No problems noted. Brother Pancreatic cancer Social History Social History Household Members: Spouse and Children Alcohol intake: current Alcohol intake frequency: holidays/special occasions only Patient Tobacco Use Status: Current everyday Tobacco user Cigarette Packs Per Day: 5 Substance Use Type: Methamphetamine Physical Exam Vital Signs: Vital Signs: Last Vital Signs Temp 98.4 F 03/12/25 17:31 Pulse 104 H 03/12/25 17:31 Resp 16 03/12/25 17:31 BP 102/66 03/12/25 17:31 Pulse Ox 92 03/12/25 17:31 O2 Del Method Room Air 03/12/25 17:31 BMI result Body Mass Index 30.5 Const: General: cooperative, healthy appearing, comfortable and no acute distress Orientation/consciousness: patient oriented x3 Limitations: no limitations HEENT: Head: Yes normal to inspection, No Green's sign and No raccoon eyes Ears: hearing grossly normal bilaterally, EAC's normal, mastoids normal, no periauricular adenopathy and TM abnormal (R TM bulging/effusion/erythema, left TM bulging ) General nose exam: Normal external nose present Face and sinus: Yes normal facial exam Mouth: Normal oral and palatal mucosa present Throat: Yes posterior oropharynx normal, Yes tonsils normal and Yes uvula midline Eyes: General: appearance normal, both eyes and all related structures Pupils: Equal, round and reactive pupils present Neck: Neck: Yes normal visual inspection, Yes full ROM, Yes no lymphadenopathy and Yes no meningeal signs Chest: Chest palpation & inspection: normal inspection of the chest Resp: Effort & Inspection: normal respiratory effort Auscultation: clear to auscultation bilaterally Cardio: Rate: regular rate Rhythm: regular rhythm Peripheral pulses: Peripheral pulses 2+ throughout GI: Inspection: Yes normal to inspection Palpation (GI): Soft to palpation and nontender Auscultation: normal bowel sounds Back/Spine/Pelvis: Thoracic/Lumbar Spine: thoracic and lumbar spine normal to inspection Skin: General skin exam: no rashes or lesions noted Neuro: General: patient oriented x3, no meningeal signs, no focal motor deficits and normal sensation to monofilament Cranial nerves: Yes Equal, round and reactive pupils present Cognition (Neuro): normal cognition Speech: No Abnormal speech present Gait exam (Neuro): Normal gait present Motor exam (neuro): 5/5 motor strength present throughout Extrem: General: Yes normal to inspection Medical Decision Making Medical Decision Making MDM Narrative: 54-year-old female with history of cervical cancer treated with internal and external radiation in 2013, anxiety, GERD here with complaints of bilateral ear pain R>L, ear pressure. Reports today she looked in her right ear with a camera device she got from [employer] and was concerned that she saw a egg inside. No recent URI symptoms. No ear discharge. No hearing change. Bilateral effusion, R AOM. Will recommend claritin, nasacort, amoxicillin course. Differential Diagnosis Differential Diagnoses: The differential diagnosis associated with the presentation includes AOM, effusion Low suspician for otitis externa, malignant otitis externa, mastoiditis Admission/Observation Consideration of admission/observation: Escalation of care including admission/observation considered low suspician for malignant otitis externa, mastoiditis requiring advanced imaging, urgent ENT consultation Tests considered The following testing was considered but not selected: low suspician for malignant otitis externa, mastoiditis requiring advanced imaging, Prescription Management I considered prescription management with: Pain Medication and Antibiotic Discharge Plan Discharge Clinical Impression: Otitis media Patient Disposition: Home, Self-Care Instructions: Ear Infection (ED) Prescriptions: New amoxicillin 500 mg capsule 500 mg PO BID Qty: 20 0RF triamcinolone acetonide [Nasacort] 55 mcg aerosol,spray 2 spray intranasal DAILY Qty: 16.9 0RF Rx Instructions: administer into each nostril loratadine [Claritin] 10 mg tablet 10 mg PO DAILY Qty: 30 0RF No Action polyethylene glycol 3350 [Miralax] 17 gram/dose powder 238 g PO ONCE 1 Days Qty: 238 0RF Rx Instructions: Take as directed by mouth the day before your procedure. cyclobenzaprine 10 mg tablet 10 mg PO Q8H Qty: 10 0RF naproxen 500 mg tablet 500 mg PO BID PRN (Reason: pain) Qty: 10 0RF cyclobenzaprine 5 mg tablet 5 mg PO TID PRN (Reason: low back pain) 7 Days Qty: 21 0RF ondansetron 4 mg tablet,disintegrating 4 mg PO Q8H 3 Days Qty: 9 0RF cyclobenzaprine 5 mg tablet 5 mg PO TID PRN (Reason: muscle spasm) Qty: 10 0RF lidocaine 5 % adhesive patch,medicated 1 patch topical DAILY Qty: 15 0RF Rx Instructions: leave on most painful area for up to 12 hrs methylprednisolone [Medrol (Filiberto)] 4 mg tablets,dose pack 4 mg PO QAM Qty: 1 0RF Rx Instructions: Take per package instruction methocarbamol 750 mg tablet 750 mg PO TID PRN (Reason: pain, moderate) Qty: 15 0RF bisacodyl [Dulcolax (bisacodyl)] 5 mg tablet,delayed release (DR/EC) 10 mg PO ONCE 1 Days Qty: 2 0RF Rx Instructions: Take 2 tablets by mouth at 12:00pm the day before your procedure. omeprazole 20 mg capsule,delayed release(DR/EC) 20 mg PO DAILY Qty: 30 5RF Citrucel 500 mg tablet 500 mg PO BID Qty: 60 5RF simethicone [Gas Relief (simethicone)] 125 mg tablet,chewable 125 mg PO TID-QID PRN (Reason: abdominal distention) Qty: 90 2RF Referrals: Yamila Rhodes MD [Primary Care Provider, Internal Medicine] - 2 weeks Referral Note: for continued symptoms Print Language: Czech
[2025-03-12 17:31] VITALS: BP 102/66; PULSE 104; RESP 16; TEMP 36.9; O2SAT 92; BMI 30.5
[2025-03-12 17:54] VITALS: BP 102/66; PULSE 104; RESP 16; TEMP 36.9; O2SAT 92
== END 2025-03-12 17:54 | disposition home or self-care (01) ==
PROVIDERS: Emergency Provider Emergency Medicine Emergency Medical Services; PCP Student in an Organized Health Care Education/Training Program
DX: H66.93 Otitis media, unspecified, bilateral (principal); H92.03 Otalgia, bilateral
CPT/HCPCS: 99282; 99283

== ENCOUNTER 2025-05-28 23:25 | Emergency (ER) | payer SELFPAY ==
--- NOTE | 2025-05-28 | ECG_ITS ---
Test Reason : CP Blood Pressure : */* mmHG Vent. Rate : 67 BPM Atrial Rate : 67 BPM P-R Int : 128 ms QRS Dur : 80 ms QT Int : 400 ms P-R-T Axes : 60 27 14 degrees QTcB Int : 422 ms Normal sinus rhythm Possible Left atrial enlargement Borderline ECG When compared with ECG of 07-Oct-2023 14:19, No significant change was found Referred By: Generic ED Physician Electronically Signed By: LEONIDES BARTON MD
--- NOTE | ~2025-05-28 | XR_ITS ---
CLINICAL HISTORY: Chest Pain 2 view chest x-ray Comparison: None provided Findings: No consolidation or effusion. Heart size is normal. No acute fracture. IMPRESSION: 1. No acute findings. This document has been electronically signed by: Eneida Denis MD on 05/29/2025 01:48:28
[2025-05-28 23:29] VITALS: BP 114/70; PULSE 72; O2SAT 97; BMI 32.1
[2025-05-28 23:37] VITALS: BP 99/62; PULSE 68; RESP 14; TEMP 36.6; O2SAT 95
--- NOTE | 2025-05-29 00:05 | ED_ITS ---
HPI - Chest Pain General Chief Complaint: Chest Pain Stated Complaint: Chest Pain Time Seen by Provider: 05/28/25 23:31 Source: patient and EMS Mode of arrival: EMS Limitations: no limitations History of Present Illness ED Provider: Tera LUCAS Related Data Previous Rx's ?Medication ?Instructions ?Recorded cyclobenzaprine 10 mg tablet 10 mg PO Q8H Muscle spasm #10 tabs 12/27/20 naproxen 500 mg tablet 500 mg PO BID PRN pain #10 t abs 12/27/20 bisacodyl 5 mg tablet,delayed 10 mg (2 x 5 mg) PO ONCE 12/26/21 release (Dulcolax (bisacodyl)) colonoscopy prep 1 day #2 tabs methylcellulose (laxative) 500 mg 500 mg PO BID #60 ta bs 12/26/21 tablet (Citrucel) omeprazole 20 mg capsule,delayed 20 mg PO DAILY #30 ca ps 12/26/21 release simethicone 125 mg chewable tablet 125 mg PO TID-QID P RN abdominal 12/26/21 (Gas Relief (simethicone)) distention #90 tabs polyethylene glycol 3350 17 238 g PO ONCE 1 day #238 g mila 04/01/22 gram/dose oral powder (Miralax) cyclobenzaprine 5 mg tablet 5 mg PO TID PRN muscle spa sm #10 10/07/23 tabs lidocaine 5 % topical patch 1 patch topical DAILY #15 ea 10/07/23 cyclobenzaprine 5 mg tablet 5 mg PO TID PRN low back p ain 7 09/15/24 days #21 tabs ondansetron 4 mg disintegrating 4 mg PO Q8H 3 days #9 tabs 09/15/24 tablet methocarbamol 750 mg tablet 750 mg PO TID PRN pain, mo derate 09/30/24 #15 tabs methylprednisolone 4 mg tablets in 4 mg PO QAM #1 ea 0 09/30/24 a dose pack (Medrol (Filiberto)) amoxicillin 500 mg capsule 500 mg PO BID #20 caps 02/14 05/09 loratadine 10 mg tablet (Claritin) 10 mg PO DAILY #30 tabs 03/12/25 triamcinolone acetonide 55 mcg 2 spray intranasal PETER Y #16.9 mL 03/12/25 nasal spray aerosol (Nasacort) Allergies Allergy/AdvReac Type Severity Reaction Status Date / Time No Known Allergies Allergy Verified 05/28/25 23:29 [facility] Past Medical History Medical History Smoker Hypothyroid Depression Cervical cancer Surgical History History of esophagogastroduodenoscopy (EGD) Hx of colonoscopy Hx of skin graft Hx of removal of cyst Hx of bilateral breast reduction surgery Family History Family History Father No problems noted. Mother No problems noted. Brother Pancreatic cancer Social History Social History Household Members: Spouse and Children Alcohol intake: current Alcohol intake frequency: holidays/special occasions only Patient Tobacco Use Status: Current everyday Tobacco user Cigarette Packs Per Day: 5 Smoked in Last 30 Days: Yes Use of substances other than those prescribed or required for medical reasons: No Substance Use Type: Methamphetamine Advance Directives: No Physical Exam 2 Vital Signs: Vital Signs: Last Vital Signs Temp 97.7 F 05/29/25 02:17 Pulse 67 05/29/25 02:17 Resp 13 05/29/25 02:17 BP 103/63 05/29/25 02:17 Pulse Ox 96 05/29/25 02:17 O2 Del Method Room Air 05/29/25 02:17 BMI result Body Mass Index 32.1 Medical Decision Making Medical Decision Making MDM Narrative: 12:40 AM 05/29/2025 (Fernando LUCAS): The patient is a 54-year-old female with history of anxiety and tobacco dependency, presenting to the ED via EMS for evaluation after experiencing a 60-90 seconds episode of racing heart palpitations with lightheadedness and near-syncope symptoms without associated true syncope, headache, focal neurological deficit, chest pain, pleurisy, shortness of breath, cough, abdominal pain, diaphoresis, nausea, vomiting, or other acute somatic complaint. The patient reports the episode occurred after taking a drag of a cigarette which she states she obtained from a local store, reports she has recently decreased her smoking from 1-2 packs per day, now down to 3 cigarettes a day. The patient reports the cigarette was a ?loose cigarette? that is sold 1 at a time by the store, not in a sealed pack or carton. The patient reports she was feeling otherwise at her baseline prior to the episode. The patient reports she has been suffering from chronic unrelenting vertigo which causes chronic dizziness and nausea with poor appetite, patient reports she has lost 50 lb in the last 6 months secondary to her vertigo, is scheduled to follow up with ENT for definitive care. The patient states these symptoms were unchanged from baseline prior to the episode. The patient reports episode resolved spontaneously, denies any recent sick contacts, fever/chills, or recent falls or other blunt head trauma. In the ED patient is well-appearing, reports no recurrence of symptoms since initial episode. Exam is benign, no acute findings. Patient's laboratory evaluation shows no leukocytosis, significant anemia, electrolyte abnormality, or REX. The patient's LFTs are unremarkable and initial troponin is negative. The patient's EKG is nonischemic, no arrhythmia noted. The patient is requesting UDS to identify of the cigarette was laced with something, we will obtain urinalysis, UDS, treat with IV fluid hydration, and obtain repeat troponin at 02:00 hours. 3:37 AM 05/29/2025 (Fernando LUCAS): Patient's repeat troponin is negative. The patient has not provided a urine sample for UDS, after discussion of the reassuring 2nd troponin, the patient states she would prefer to be discharged home and not wait to provide a urinalysis. Patient will be discharged. Of note patient is also requesting a work note, which we will provide. Admission/Observation Consideration of admission/observation: Escalation of care including admission/observation considered Lab Data MDM Lab Attestation statement: I reviewed the patient's lab results. 05/28/25 23:54 05/28/25 23:54 Labs: Lab Results 05/28/25 05/29/25 Range/Units 23:54 02:16 WBC 7.7 (4.8-10.8) X10*3/uL RBC 3.91 L (4.20-5.50) X10*6/uL Hgb 13.2 (12.0-16.0) g/dl Hct 37.0 (37.0-47.0) % MCV 94.6 (80.0-98.0) fL MCH 33.8 H (27.0-33.0) pg MCHC 35.7 H (31.0-35.0) g/dl RDW 13.1 (11.0-16.0) % Plt Count 213 D (160-400) X10*3/uL MPV 8.8 L (9.4-12.3) fL Immature Gran % (Auto) 0.3 (0.0-0.4) % Neut % (Auto) 57.9 (45-73) % Lymph % (Auto) 32.4 (20-40) % [place] % (Auto) 7.9 (2-11) % Eos % (Auto) 1.2 (0-4) % Baso % (Auto) 0.3 (0-2) % Lymph # (Auto) 2.5 (1.2-4.9) X10*3/uL [place] # (Auto) 0.6 (0.1-1.2) X10*3/uL Eos # (Auto) 0.1 (0.0-0.4) X10*3/uL Baso # (Auto) 0.0 (0.0-0.2) X10*3/uL Abs Immat Gran (auto) 0.02 (0.00-0.03) X10*3/uL Absolute Neuts (auto) 4.5 (2.0-8.3) x10*3/uL Absolute Nucleated RBC 0.000 (0.0-0.012) X10*3/uL Nucleated RBC % (auto) 0.0 (0.0-0.2) /100WBC Sodium 140 (135-145) mmol/L Potassium 4.7 D (3.3-5.1) mmol/L Chloride 111 H (96-108) mmol/L Carbon Dioxide 18 L (22-29) mmol/L Anion Gap 16 (12-20) BUN 11 (9-16) mg/dL Creatinine 0.56 (0.5-1.4) mg/dL Estim Creat Clear Calc 114.8 Estimated GFR > 60 Random Glucose 113 (60-115) mg/dL Calcium 8.7 (8.4-10.2) mg/dL Magnesium 2.1 (1.6-2.6) mg/dL Total Bilirubin 0.3 (0.0-1.0) mg/dL AST 35 H (5-31) U/L ALT 25 (0-31) U/L Alkaline Phosphatase 101 (39-117) U/L Troponin I High Sens < 2.7 < 2.7 (<3.5-17.0) ng/L Total Protein 8.0 (6.5-8.0) g/dL Albumin 3.9 (3.5-5.0) g/dL Independent Interpretation I performed an independent interpretation of an: EKG (EKG shows sinus rhythm with a rate of 67, no evidence of acute ischemia, no ST elevation, no ectopy. QTC 422. Compared to previous on 10/07/2023 there are no significant morphology changes. ) Radiology Impression Discussion of test interpretation with radiology: I have reviewed the radiologist's reading. Radiologist Impression: CLINICAL HISTORY: Chest Pain 2 view chest x-ray Comparison: None provided Findings: No consolidation or effusion. Heart size is normal. No acute fracture. IMPRESSION: 1. No acute findings. This document has been electronically signed by: Eneida Denis MD on 05/29/2025 01:48:28 External Record Review External record reviewed: Outpatient record and Prior outpatient labs Discharge Plan Discharge Clinical Impression: Atypical chest pain Patient Disposition: Home, Self-Care Instructions: Noncardiac Chest Pain (ED) Additional Instructions: Thank you for choosing [facility]'s Emergency Department for your care today. Thankfully your laboratory evaluation, EKG, chest x-ray, and exam today are all reassuring. There was no evidence of any emergent process causing your symptoms. At this time there is no indication for admission to the hospital or continued ED observation, and it is safe to discharge you home. The exact cause of your episode of racing heart palpitations while smoking a cigarette is not entirely clear, however seeing as you have not had recurrence of your symptoms and your workup is reassuring it is safe to discharge you home to follow up with your primary care provider for further investigation. Please follow up with your primary care physician for re-evaluation, additional management of your symptoms, and continued preventative care. If you do not have a primary care physician, please call the [facility] at [phone] to establish a new primary care physician. While waiting to establish your new primary care physician, you can call our [facility]in [facility] at [phone] for non-emergency needs. Please return to the emergency department if you develop a severe or sudden change in your symptoms, a fever over 100.4 that does not improve with Tylenol or Ibuprofen, recurrent vomiting, or any other new or worsening symptoms or concerns. Prescriptions: No Action polyethylene glycol 3350 [Miralax] 17 gram/dose powder 238 g PO ONCE 1 Days Qty: 238 0RF Rx Instructions: Take as directed by mouth the day before your procedure. cyclobenzaprine 10 mg tablet 10 mg PO Q8H Qty: 10 0RF naproxen 500 mg tablet 500 mg PO BID PRN (Reason: pain) Qty: 10 0RF cyclobenzaprine 5 mg tablet 5 mg PO TID PRN (Reason: low back pain) 7 Days Qty: 21 0RF ondansetron 4 mg tablet,disintegrating 4 mg PO Q8H 3 Days Qty: 9 0RF cyclobenzaprine 5 mg tablet 5 mg PO TID PRN (Reason: muscle spasm) Qty: 10 0RF lidocaine 5 % adhesive patch,medicated 1 patch topical DAILY Qty: 15 0RF Rx Instructions: leave on most painful area for up to 12 hrs methylprednisolone [Medrol (Filiberto)] 4 mg tablets,dose pack 4 mg PO QAM Qty: 1 0RF Rx Instructions: Take per package instruction methocarbamol 750 mg tablet 750 mg PO TID PRN (Reason: pain, moderate) Qty: 15 0RF amoxicillin 500 mg capsule 500 mg PO BID Qty: 20 0RF triamcinolone acetonide [Nasacort] 55 mcg aerosol,spray 2 spray intranasal DAILY Qty: 16.9 0RF Rx Instructions: administer into each nostril loratadine [Claritin] 10 mg tablet 10 mg PO DAILY Qty: 30 0RF bisacodyl [Dulcolax (bisacodyl)] 5 mg tablet,delayed release (DR/EC) 10 mg PO ONCE 1 Days Qty: 2 0RF Rx Instructions: Take 2 tablets by mouth at 12:00pm the day before your procedure. omeprazole 20 mg capsule,delayed release(DR/EC) 20 mg PO DAILY Qty: 30 5RF Citrucel 500 mg tablet 500 mg PO BID Qty: 60 5RF simethicone [Gas Relief (simethicone)] 125 mg tablet,chewable 125 mg PO TID-QID PRN (Reason: abdominal distention) Qty: 90 2RF Referrals: [place],[facility] [Primary Care Provider, Primary Care] Clinical Impression: Atypical chest pain Stand Alone Forms: Work/School Release Print Language: Albanian
[2025-05-29 00:06] LABS: Hematocrit 37.0 % (37.0-47.0); Hemoglobin 13.2 g/dl (12.0-16.0); Imm Gran Abs Auto 0.02 X10*3/uL (0.00-0.03); Imm Gran Pct Auto 0.3 % (0.0-0.4); Lymphocytes Absolute Auto 2.5 X10*3/uL (1.2-4.9); MANUAL DIFF FLAG NO; Mean Corpuscular HGB Conc 35.7 g/dl (31.0-35.0); Mean Corpuscular Hemoglobin 33.8 pg (27.0-33.0); Mean Corpuscular Volume 94.6 fL (80.0-98.0); NRBC Abs Auto 0.000 X10*3/uL (0.0-0.012); NRBC Pct Auto 0.0 /100WBC (0.0-0.2); Platelet Count 213 X10*3/uL (160-400); Red Blood Count 3.91 X10*6/uL (4.20-5.50); White Blood Count 7.7 X10*3/uL (4.8-10.8)
[2025-05-29 00:22] LABS: Alanine Aminotransferase 25 U/L (0-31); Albumin Level 3.9 g/dL (3.5-5.0); Alkaline Phosphatase 101 U/L (39-117); Anion Gap 16 (12-20); Aspartate Amino Transferase 35 U/L (5-31); Blood Urea Nitrogen 11 mg/dL (9-16); Calcium 8.7 mg/dL (8.4-10.2); Carbon Dioxide 18 mmol/L (22-29); Chloride 111 mmol/L (96-108); Creatinine Clr Calc Pharmacy 114.8; Estimated Glomerular Filt Rate > 60; Magnesium 2.1 mg/dL (1.6-2.6); Potassium 4.7 mmol/L (3.3-5.1); Sodium 140 mmol/L (135-145); Total Protein 8.0 g/dL (6.5-8.0)
[2025-05-29 00:28] LABS: Troponin-I High Sensitivity < 2.7 ng/L (<3.5-17.0)
--- OUTSIDE RECORDS SUMMARY | 2025-05-29 01:04 | XMS_ITS | Patient Health Record ---
Author Organization [facility] Address [address] [place] [address] Care Team Providers Care Local City Driver Name Role Phone WILLIS MAGDALENA Primary Care Provider Giuseppe Hines [phone] Reason For Referral No Information Medications Medication SIG (Take, Route, Frequency, Duration) Notes Start Date End Date Status Depakote Active clonazePAM Active SEROquel Not-Taking Motrin 800 mg tablet Orally Q 2-3 days A ctive Cyclobenzaprine HCl 10 MG 1 tablet Orally prn 09/21/2014 Not-Taki ng Ibuprofen 800 MG 1 tablet Orally prn Not-Taking Colyte w Flavor Packs 240 GM as directed Orally as directed for 1 day(s) 09/22/2014 Not-Taking Dicyclomine HCl 10 MG 1-2 capsules Orall y QID prn abdominal pain for 30 day(s) 09/21/2014 Not-Taking Problems Problem Type SNOMED Code ICD Code Onset Dates Problem Status W/U Status Risk Notes Problem 899068903 Abdominal bloating (R14.0) Active confirmed Problem 859900151 Irritable bowel syndrome with diarrhea (K58.0) Active confirmed Problem 36716681 Slow transit constipation (K59.01) Active confirmed Problem [id number] Flatus (R14.3) Active confirmed Plan Of Treatment Pending Test Test Name Order Date XR GI SMALL BOWEL SERIES 09/21/2014 Future Test Test Name Order Date COLONOSCOPY 09/21/2014 Insurance Providers Payer Name Payer Address Payer Phone Subscriber Number Group Number Insured Name Patient Relationship to Insured Coverage Start Date Coverage End Date [facility] [address] [address] [place], [place] [phone] [id number] JESIKA ARIAS Self - patient is the insured MEDICAID OF [employer] [address] [place] [phone] [id number] JESIKA ARIAS Self - patient is the insured Medical (General) History Medical History History ICD Code Cervical [id number] ed in 01/2014--chemo and internal/external XRT--finished in 06/2014--sees and Dr. Tan at [facility]--stage IIB--had a reportedly improved PET-CT at [facility] Denies [place],DM,CVA,Lung disease,renal dise ase Depression/Anxiety/? Bipolar disease Colonoscopy in October revealed some questionable changes of mild colitis in the sigmoid colon and cecum in relation to radiation, although biopsies from those areas were normal. She also had a normal small bowel series and CAT scan of the abdomen and pelvis as part of her workup as well. Surgical History Surgery Date(Month/Year) breast reduction left hand carpel tunnel 05/18/2015
--- OUTSIDE RECORDS SUMMARY | 2025-05-29 01:04 | XMS_ITS | Encounter Summary ---
Author Organization [employer] Address [address] [place] [address] 7t [place] [address] Care Team Providers Care Cushion Mat Maker Name Role Phone Yamila Rhodes MD Primary Care Provider [phone] Reason for Visit * Reason Onset Date Comments Nurse Triage 02/27/2024 Encounter Details Date Type Department Care Team ([facility] st Contact Info) Description 02/27/2024 Telephone [facility] CH[facility] MED & PEDS [address] [place] [address] Yamila Rhodes MD [address] [place] [address] Nurse Triage Social History Tobacco Use Types Packs/Day Years Used Date Smoking Tobacco: Every Day Cigarettes Passive Smoke Exposure: Never Comments Unknown Sex and Gender Information Value Date Recorded Sex Assigned at Female 07/15/2022 10:14 AM EDT Legal Sex Female 10:14 AM EDT Gender Identity Female 07/15/2022 10:14 AM EDT Sexual Orientation Straight 07/15/2022 10 :14 AM EDT documented as of this encounter Miscellaneous Notes * Telephone Encounter - Linda Boucher - 02/27/2024 10:26 AM EDT Symptom: Toothache Outcome: Schedule an urgent appointment (within 1 hour) or talk to a nurse or provider soon Reason: Severe pain now The caller accepted this outcome Please contact pt at [phone] documented in this encounter Plan of Treatment Not on file documented as of this encounter Visit Diagnoses Not on filedocumented in this encounter Care Teams Cushion Mat Maker Relationship Specialty Start Date End Date Yamila Rhodes MD [address] [place] [address] PCP - General Family Medicine 08/27/12 documented as of this encounter
--- OUTSIDE RECORDS SUMMARY | 2025-05-29 01:04 | XMS_ITS | Encounter Summary ---
Author Organization [employer] Address [address] [facility] 7t [place] [address] Care Team Providers Care Organizational Effectiveness Director Name Role Phone Yamila Rhodes MD Primary Care Provider [phone] Reason for Visit * Reason Onset Date Comments Nurse Triage 09/28/2024 Encounter Details Date Type Department Care Team ([facility] st Contact Info) Description 09/28/2024 Telephone [facility] MEDICINE [address] [place] [address] Yamila Rhodes MD [address] [place], [place] [phone] Nurse Triage Social History Tobacco Use Types [...] encounter Miscellaneous Notes * Telephone Encounter - Geraldine Meza RN - 09/30/2024 10:31 AM EST TC to patient. She is moaning and crying, stating she is having severe pain in her back. Patient states she is able to move (slowly) and get to the bathroom. When asked if patient had been evaluated at the ER 2 days ago as advised, the patient stated she did not. This RN recommended patient call EMS to go to ER for evaluation. Patient stated verbal understanding and agreed with the plan. Routing to provider as FYI. * Telephone Encounter - Elysia Nicholas LPN - 09/28/2024 3:18 PM EST Triage call returned to patient who reports that she started with abdominal pain and pain into her groin back at the beginning of the month. Was seen at [facility] ED and was discharged to home with acute low back pain diagnosed. Patient states she has been unable to get up and move around and has been laying in her bed. Attempts to stand to get OOB are painful and cause her to lay back down. As of today patient reports that she is unable to walk and has had urinary and bowel incontinence as she is unable to get up to the bathroom that is feet away. Patient at home with family member and advised alfonsoeeds to proceed to ED for care. Will activate 911 for transport and is concerned as she needs docum entation for her job. Disposition reviewed and patient in agreement with plan. Team tasked to follow with status check after ED evaluation. Protocol Used: Back Pain (Adult) Protocol-Based Disposition: Go to ED Now Positive Triage Question: * Loss of bladder or bowel control (urine or bowel incontinence; wetting self, leaking stool) of new-onset * All higher-acuity triage questions were negative Care Advice Discussed: * Reasons To Call Back - Fever occurs - Numbness or weakness occurs - Severe pain not better after taking pain medicines - Pain begins to shoot into the leg - Pain lasts over 2 weeks - Pain becomes worse - You become worse * Telephone Encounter - Ramy Poon - 09/28/2024 3:03 PM EST Tc frm pt stating that she has been in a lot of pain and it making her un able to move. Pt states that the Pain is coming from [facility] Contact pt at [phone] documented in this encounter Plan of Treatment Not on file documented as of this encounter Visit Diagnoses Not on filedocumented in this encounter Care Teams Organizational Effectiveness Director Relationship Specialty Start Date End Date Yamila Rhodes MD [address] [place] [id number] PCP - General Family Medicine 08/27/12 documented as of this encounter
--- OUTSIDE RECORDS SUMMARY | 2025-05-29 01:04 | XMS_ITS | Clinical Summary ---
Author Organization [employer] Address [address] [place] [address] 7t [place] [address] Care Team Providers Care Bread Slicer Machine Name Role Phone Yamila Rhodes MD Primary Care Provider [phone] Allergies No known active allergies Medications loratadine (Claritin) 10 MG tablet Take 1 tablet (10 mg) by mouth Once per day. 30 tablet 11 12/07/2024 Active Active Problems Problem Noted Date Diagnosed Date Mood disorder 12/27/2014 09/24/2023 Tobacco dependence syndrome 12/27/201409/15 Hypothyroidism 10/15/2013 09/24/2023 Malignant tumor of cervix 10/15/20132023 Obesity 10/15/2013 09/24/2023 Encounters Date Type Department Care Team Description 05/11/2025 Travel from Last 3 Months Immunizations Immunization Administration Dates Next Due Hep B, Adolescent or Pediatric 05/06/2018 Hep B, adult 09/12/2008,07/18/2005 Influenza Injectable Quadriv alant Preservative Free IIV4 MDCK 08/08/2020 Influenza injectable quadrivalent preservative f ree 07/28/2018 MMR 08/25/2018,07/22/2005 Pfizer Covid-19 Vaccine 12+ 06/19/2021 TD (adult), 2 Lf tetanus tox oid, preservative free, adsorbed 09/15/2011,07/18/2005 Tdap 12/07/2024 Social History Tobacco Use Types Packs/Day Years Used Date Smoking Tobacco: Every Day Cigarettes Passive Smoke Exposure: Never Alcohol Use Standard Drinks/Week Comments Yes 0 (1 standard drink = 0.6 oz pur e alcohol) oca Depression Answer Date Recorded Patient Health Questionnaire-9 Score 0 12/07/2024 Patient Health Questionnaire-9 Score 0 12/07/2024 Last PHQ-9: Questionnaire Data Not on file 0 12/07/2024 Depression Answer Date Recorded Patient Health Questionnaire-2 Score 0 12/07/2024 Comments No Sex and Gender Information Value Date Recorded Sex Assigned at Female 07/15/2022 10:14 AM EDT Legal Sex Female 10:14 AM EDT Gender Identity Female 07/15/2022 10:14 AM EDT Sexual Orientation Straight 07/15/2022 10 :14 AM EDT Last Filed Vital Signs Vital Sign Reading Time Taken Comments Blood Pressure 98/62 12/07/2024 11:23 AM EDT Pulse 86 12/07/2024 11:23 AM EDT Temperature 36.7 C (98 F) 12/07/2024 11:23 AM EDT Respiratory Rate 20 12/07/2024 11:2 3 AM EDT Oxygen Saturation 98% 12/07/2024 11: 23 AM EDT Inhaled Oxygen Concentration - - Weight 71.1 kg (156 lb 12.8 oz) 025 11:23 AM EDT Height 157.5 cm (5' 2 ) 12/07/2024 11:2 3 AM EDT Body Mass Index 28.68 12/07/2024 11:23 AM EDT Plan of Treatment Health Maintenance Due Date Last Done Comments CT Colonography 1972 FIT DNA/Cologuard 1972 FIT 1972 FOBT 1972 HIV Screening 1972 Lipid Panel 1972 SDOH Screening 1972 Sigmoidoscopy 1972 Disability Screening 1972 Family Planning (PISQ) 1987 Hepatitis C Screening 1990 Pneumococcal Vaccine: 50+ Years (1 of 2 - PCV) 1991 Mammogram 2012 Hepatitis B Vaccines (3 of 3 - 19+ 3-dose series) 07/01/2018 05/06/2018, 09/12/2008, 07/18/2005 Zoster Vaccines (1 of 2) 2022 Colonoscopy 04/02/2025 04/02/2022 Colorectal Cancer Screening 04/02/2025 COVID-19 Vaccine ( - 2024-2 6 season) 2025 01/14/2022, 06/19/2021, 05/29/2021 Influenza Vaccine (#1) 2025 , 07/28/2018 Cervical Cancer Screening 11/09/2025 HPV/Cotest 11/09/2025 11/09/2020, 09/22/2018 Pap Smear 11/09/2025 11/09/2020 Tobacco Screening 11/20/2025 11/20/2024 Alcohol/Substance Use Screening 12/07/2025 12/07/2024 Depression Screening 12/07/2025 12/07/2024, 12/07/2024 DTaP/Tdap/Td Vaccines (2 - T d or Tdap) 12/07/2034 12/07/2024, 09/15/2011, 07/18/2005 RSV Patients and Patients Aged 60 years or older (1 - 1-dose 75+ series) 2047 HIB Vaccines Aged Out No longer eligi ble based on patient's age to complete this topic HPV Vaccines Aged Out No longer eligi ble based on patient's age to complete this topic Hepatitis A Vaccines Aged Out No long er eligible based on patient's age to complete this topic IPV Vaccines Aged Out No longer eligi ble based on patient's age to complete this topic Meningococcal B Vaccine Aged Out No l onger eligible based on patient's age to complete this topic Meningococcal Vaccine Aged Out No yolanda ernie eligible based on patient's age to complete this topic RSV under 20 months Aged Out No longe r eligible based on patient's age to complete this topic Rotavirus Vaccines Aged Out No longer eligible based on patient's age to complete this topic Procedures Procedure Name Priority Date/Time Associated Diagnosis Comments HM COLONOSCOPY Routine 04/02/2022 HPV MRNA E6/E7 Routine 11/09/2020 12:00 AM EST THINPREP PAP Routine 11/09/2020 12:00 AM EST from Last 3 Months or Most Recently Relevant to Health Maintenance Results * Hm Colonoscopy (04/02/2022) Colonoscopy Normal Normal 04/02/2022 Narrative Bambi Denton - 04/02/2022 10:22 AM EDT Repeat colonoscopy in 3-5 due to polyps (see scanned report [facility] ) Historical Provider MD HEALTH MAINTENANCE Final Result * THINPREP PAP (11/09/2020 12:00 AM EST) Clinical Information: CX [place] 2013 [facility] COMMENT SEE COMMENT [facility] Comment: EXPLANATORY NOTE: The Pap is a screening test for cervical cancer. It is not a diagnostic test and is subject to false negative and false positive results. It is most reliable when a satisfactory sample, regularly obtained, is submitted with relevant clinical findings and history, and when the Pap result is evaluated along with historic and current clinical information. Brim Pouncer : SEE COMMENT [facility] Comment: ALS, CT(ASCP) CT screening location: [place] [address] Interpretation/R esult: Negative for intraepithelial lesion or malignancy. [facility] LMP: NONE [facility]IVEN [facility] Prev. BX: NONE [facility]IVEN [facility] Prev. PAP: 2019 ASCUS HPV- [facility] Review Brim Pouncer : SEE COMMENT [facility] Comment: HJP, CT(ASCP) CT screening location: [place] [address] SOURCE: None given [facility] Statement Of Adequacy: SEE COMMENT [facility] Comment: Satisfactory for evaluation. Endocervical/transformation zone component absent. Age and/or menstrual status not provided 11/09/2020 us Charley Dietrich CNM LAB PATHOLOGY ORDERABLES Final Result [facility] [address] * HPV mRNA E6/E7 (11/09/2020 12:00 AM EST) HPV nRNA E6/E7 Not Detected Not Detected [facility] Comment: Methodology: Ballet Master/Mistress-Mediated Amplification This assay detects E6/E7 viral messenger RNA (mRNA) from 14 high-risk HPV types (16,18,31,33,35,39,45,51,52,56,58,59,66,68). The analytical performance characteristics of this assay have been determined by [employer]. The modifications have not been cleared or approved by the FDA. This assay has been validated pursuant to the CLIA regulations and is used for clinical purposes. For additional information, please refer to http://education.[employer]/WFH942p1 (This link if provided for information/ educational purposes only.) 11/09/2020 Charley Dietrich [facility] LAB BLOOD ORDERABLES Leyda ren Result [facility] [address] from Last 3 Months or Most Recently Relevant to Health Maintenance Insurance Care Teams Bread Slicer Machine Relationship Specialty Start Date End Date Yamila Rhodes MD [address] [place] [address] PCP - General Family Medicine 08/27/12
--- OUTSIDE RECORDS SUMMARY | 2025-05-29 01:04 | XMS_ITS | Encounter Summary ---
Author Organization [employer] Address [address] [facility] 7t [place] [address] Care Team Providers Care Electronic Typesetting Machine Operator Name Role Phone Yamila Rhodes MD Primary Care Provider [phone] Encounter Details Date Type Department Care Team ([facility] st Contact Info) Description 01/28/2023 Abstract [facility] CHC MED & PEDS [address] [place], [place] [phone] Yamila Rhodes MD [address] [place] [address] Social History Tobacco Use Types Packs/Day Years Used Date Smoking Tobacco: Never Assessed Comments Unknown Sex and Gender Information Value Date Recorded Sex Assigned at Female 07/15/2022 10:14 AM EDT Legal Sex Female 10:14 AM EDT Gender Identity Female 07/15/2022 10:14 AM EDT Sexual Orientation Straight 07/15/2022 10 :14 AM EDT documented as of this encounter Plan of Treatment Not on file documented as of this encounter Visit Diagnoses Not on filedocumented in this encounter Care Teams Electronic Typesetting Machine Operator Relationship Specialty Start Date End Date Yamila Rhodes MD [address] [place] [address] PCP - General Family Medicine 08/27/12 documented as of this encounter
--- OUTSIDE RECORDS SUMMARY | 2025-05-29 01:04 | XMS_ITS | Clinical Summary ---
Author Organization [facility] Address [address] [place] [address] Phone Care Team Providers Care Rough And Truing Machine Operator Name Role Phone Yamila Rhodes MD Primary Care Provider [phone] Allergies No known active allergies Medications No known medications Encounters Date Type Department Care Team Description 05/11/2025 4:54 PM EDT - 05/11/2025 5:31 PM EDT Emergency [facility] Emergency [address] [place] [address] Temo Gamez MD Chronic ear pain, bilateral (Primary Dx) Discharge Disposition: Home or Self Care from Last 3 Months Social History Tobacco Use Types Packs/Day Years Used Date Smoking Tobacco: Never Assessed Comments Unknown Sex and Gender Information Value Date Recorded Sex Assigned at Not on file Legal Sex Female 4:12 PM EDT Gender Identity Not on file Sexual Orientation Not on file Obstetrics History Last Filed Vital Signs Vital Sign Reading Time Taken Comments Blood Pressure 115/85 05/11/2025 4:16 PM EDT Pulse 101 05/11/2025 4:16 PM EDT Temperature 36.7 C (98.1 F) 05/11/2025 4:16 PM EDT Respiratory Rate 16 05/11/2025 4:16 PM EDT Oxygen Saturation 99% 05/11/2025 4:16 PM EDT Inhaled Oxygen Concentration - - Weight 76.2 kg (168 lb) 05/11/2025 4:16 PM EDT Height 160 cm (5' 3 ) 05/11/2025 4:16 PM EDT Body Mass Index 29.76 05/11/2025 4:16 PM EDT Plan of Treatment Health Maintenance Due Date Last Done Comments Breast Cancer Screening 1972 Cervical Cancer Screening: P ap Smear 1993 Hepatitis B Vaccines (3 of 3 - 19+ 3-dose series) 07/01/2018 05/06/2018, 09/12/2008, 07/18/2005 Pneumococcal Vaccine: 50+ Years (1 of 1 - PCV) 2022 Zoster Vaccines (1 of 2) 2022 Depression Screening 09/15/2024 Cholesterol Screening (Lipid Panel) 05/11/2025 Colorectal Cancer Screening: Colonoscopy 05/11/2025 HIV Screening 05/11/2025 Hepatitis C Screening 05/11/2025 Social Influencers of Health Screening 05/11/2025 COVID-19 Vaccine (2 - 2024-2 6 season) 2025 06/19/2021 Influenza Vaccine (#1) 2025 , 07/28/2018 DTaP,Tdap,and Td Vaccines (4 - Td or Tdap) 12/07/2034 12/07/2024, 09/15/2011, 07/18/2005 MMR Vaccines Aged Out 08/25/2018, 07/22/2005 No longer eligible based on patient's age to complete this topic HIB Vaccines Aged Out No longer eligi [...] patient's age to complete this topic Meningococcal ACWY Vaccine Aged Out N o longer eligible based on patient's age to complete this topic Meningococcal B Vaccine Aged Out No l onger eligible based on patient's age to complete this topic RSV Immunization Patients Under 20 months Aged Out No longer eligible b ased on patient's age to complete this topic Varicella Vaccines Aged Out No longer eligible based on patient's age to complete this topic Care Teams Rough And Truing Machine Operator Relationship Specialty Start Date End Date Yamila Rhodes MD [address] [place] [phone] PCP - General Family Medicine 05/11/25
--- OUTSIDE RECORDS SUMMARY | 2025-05-29 01:04 | XMS_ITS | Encounter Summary ---
Author Organization [employer] Address [address] [facility] [address] [place] [address] Care Team Providers Care Substitute Teacher Name Role Phone Yamila Rhodes MD Primary Care Provider [phone] Encounter Details Date Type Department Care Team ([facility] st Contact Info) Description 01/28/2023 Abstract [facility] CH[facility] MED & PEDS [address] [place], [place] [phone] Yamila Rhodes MD [address] [place], [place] [phone] Social History Tobacco Use Types Packs/Day Years [...] on file documented as of this encounter Procedures Procedure Name Priority Date/Time Associated Diagnosis Comments COLONOSCOPY Routine 04/02/2022 documented in this encounter Results * Colonoscopy (04/02/2022) Colonoscopy Normal Normal 04/02/2022 Narrative Bambi Denton - 04/02/2022 10:22 AM EDT Repeat colonoscopy in 3-5 due to polyps (see scanned report [facility] ) Historical Provider HEALTH MAINTENANCE Final Result documented in this encounter Visit Diagnoses Not on filedocumented in this encounter Care Teams Substitute Teacher Relationship Specialty Start Date End Date Yamila Rhodes MD [address] [place] [id number] PCP - General Family Medicine 08/27/12 documented as of this encounter
[2025-05-29 02:17] VITALS: BP 103/63; PULSE 67; RESP 13; TEMP 36.5; O2SAT 96
[2025-05-29 02:44] LABS: Troponin-I High Sensitivity < 2.7 ng/L (<3.5-17.0)
[2025-05-29 03:54] VITALS: BP 92/57; PULSE 60; RESP 16; TEMP 36.4; O2SAT 97
== END 2025-05-29 04:03 | disposition home or self-care (01) ==
PROVIDERS: Physician Assistant; Emergency Provider Emergency Medicine; PCP Dentist General Practice
DX: R07.89 Other chest pain (principal); F17.210 Nicotine dependence, cigarettes, uncomplicated; R00.2 Palpitations; R42 Dizziness and giddiness; Z79.899 Other long term (current) drug therapy
CPT/HCPCS: 36415; 71046; 80053; 83735; 84484; 85025; 93005; 99283; 99285

== ENCOUNTER → 2025-05-28 23:39 | Outpatient (BNV) | payer MEDICAID, SELFPAY | PROVIDERS: Emergency Provider Emergency Medicine; PCP Dentist General Practice; Visit Provider Internal Medicine Cardiovascular Disease | DX: R07.89 Other chest pain (principal) | CPT/HCPCS: 93010 ==

== ENCOUNTER → 2025-05-29 00:04 | Outpatient (BNV) | payer MEDICAID, SELFPAY | PROVIDERS: Emergency Provider Emergency Medicine; PCP Dentist General Practice; Visit Provider Student in an Organized Health Care Education/Training Program | DX: R07.9 Chest pain, unspecified (principal) | CPT/HCPCS: 71046 ==